=== PATIENT | female | born 1955 | race Caucasian/White ===

== ENCOUNTER 2020-08-08 08:28 | Inpatient (IN) ==
[2020-08-08 08:38] VITALS: BMI 24.1
--- NOTE | 2020-08-08 09:16 | ED.ABDFE ---
HPI - PCP Primary Care Physician: KAYKAY MOHR - Complaint Chief Complaint Doctors Comments: Patient is complaining of swelling of her abdomen and right ankle for the past two weeks getting progressively worst. She denies chest pain, SOB, cold, cough, hematuria or heide but complains of dyspnea when she bends over. She is a patient of Dr. Louis in [place] and is taking Protonix, Baclofen and xanax. She smokes about a pack daily and drinks wine coolers at times. she denies drug usage. She denies any recent trauma. States her usual weight is 124 pounds now she is weighing 132 and has not been eating more than usual. She has not had a colonoscopy or recent paps smear. Chief Complaint:: PT C/O FOR 2 WEEKS HAVING BLOATED AND SWELLING TO HER ABD , ( PT TOOK WATER PILL FROM FAMILY MEMBER ) AND SWELLING TO HER ANKLES PT STATES " I THOUGHT IT WOULD GO AWAY " ,BR - COVID-19 Coronavirus risk:travel/contact w/high risk person: No Has patient experienced Coronavirus symptoms: No - Source History Provided: Patient - Mode of arrival Mode of Arrival: Ambulatory - Timing Onset of Chief Complaint: 07/23/20 Came on: Gradually - Duration Duration: Constant How lon Duration: Weeks - Context History of: None - Modifying Worsening Factors: Position, Movement Improving Factors: Nothing - Associated signs and symptoms Associated Signs and Symptoms: None - Time seen Time Seen by Provider: 08/08/20 09:07 PMH - PMH Past Medical History: Yes Past Medical History: GERD Past Surgical History: Yes Surgical History: Tonsillectomy - Family History History of Family Medical Conditions: Yes Family Medical History: Diabetes Mellitus, Cancer, [place], Coronary Artery Disease - Social History Does patient currently use any type of tobacco product: Yes Have you used tobacco products in the last 12 months: Yes Type of Tobacco Use: Cigarettes How many years tobacco product used: 30 Does any household member use tobacco: No Alcohol Use: None Do you use any recreational Drugs:: No Lives With: Alone Lives Where: Home - Travel Risk Coronavirus risk:travel/contact w/high risk person: No Has patient experienced Coronavirus symptoms: No - infectious screening In the last 2 months have you had wt loss of >10#?: NO Have you had fever, night sweats or hemotysis?: No Have you traveled outside the country in the last 6 months?: No Isolation: Standard ROS - Review of Systems Constitutional: No Symptoms Reported Eyes: No Symptoms Reported ENTM: No Symptoms Reported Respiratoy: No Symptoms Reported Cardiovascular: No Symptoms Reported. negative: See HPI, Chest Pain, Edema, Palpitations, Syncope, Cyanosis, Skin Mottling, Other Gastrointestinal/Abdominal: No Symptoms Reported. negative: See HPI, Abdominal Pain, Constipation, Diarrhea, Nausea, Vomiting, Food Intolerance, Other Genitourinary: No Symptoms Reported. negative: See HPI, Discharge, Dysuria, Frequency, Hematuria, Pain, Bleeding, Other Neurological: No Symptoms Reported Musculoskeletal: No Symptoms Reported Integumentary: No Symptoms Reported Hematologic/Lymphatic: No Symptoms Reported. negative: See HPI, Anemia, Blood Clots, Easy Bleeding, Easy Bruising, Swollen Glands, Lymphadenopathy, Other Endocrine: No Symptoms Reported Psychiatric: No Symptoms Reported. negative: See HPI, Anxiety, Depression, Hallucinations, Excessive crying, Suicidal, Other PE - General Limitations: No Limitations General Appearance: Alert, In Distress (moderate) - Head Head Exam: Normal Inspection, Atraumatic, Normocephalic - Eyes Eye exam: Normal Appearance, PERRL, EOMI. negative: Scleral Icterus, Conjunctival Injection, Nystagmus, Miosis, Mydrasis, Periorbital Swelling, Periorbital Tenderness, Other - ENT ENT Exam: Normal Exam, Normal Oropharynx, Normal External Ear Exam, Mucous Membranes Moist, TM's Normal Bilaterally - Neck Neck Exam: Normal Inspection, Full ROM, Trachea Midline - Chest Chest Inspection: Normal Inspection, Symmetric Chest Wall Rise. negative: Tenderness, Rash, Abscess, Other - Respiratory Respiratory Exam: Normal Lung Sounds Bilat Respiratory Exam: Bilateral Clear to Auscultation - Cardiovascular Cardiovascular Exam: Regular Rate, Normal Rhythm, Normal Heart Sounds. negative: Bradycardia, Tachycardia, Irregular Rhythm, Systolic Murmur, Diastolic Murmur, Rubs, Gallop, Clicks, JVD, +S1, +S2, +S3, +S4, Other - Abdominal Exam Abdominal Exam: Normal Inspection, Normal Bowel Sounds, Soft, Distention, Tenderness (LUQ and RUQ tenderness), Ascites Abdominal Tenderness: RUQ, LUQ, Mild - Rectal Rectal Exam: Deferred - Back Back Exam: Normal Inspection, Full ROM. negative: Tenderness, (R) CVA Tenderness, (L) CVA Tenderness, Muscle Spasm, Paraspinal Tenderness, Vertebral Tenderness, Rashes, (R) Sciatic Notch Tenderness, (L) Sciatic Notch Tendern, (R) Straight Leg Raise, (L) Straight Leg Raise, Other - Extremeties Extremities Exam: Normal Inspection, Full ROM, Normal Capillary Refill. negative: Tenderness, Edema, Joint Swelling, Calf Tenderness, Other - External Exam: Female: Deferred : Speculum Exam (Female): Deferred : Bimanual Exam (female): Deferred - Neurologic Neurological Exam: Alert, Oriented X3, CN II-XII Intact, Normal Gait, Reflexes Normal - Psychiatric Psychiatric Exam: Normal Affect, Normal Mood. negative: Depressed, Agitated, Anxious, Flat Affect, Manic, Homicidal Ideation, Suicidal Ideation, Other - Skin Skin Exam: Warm, Dry, Intact, Normal Color. negative: Rash, Cyanosis, Diaphoresis, Erythema, Pallor, Mottled, Other - Vital Signs Vitals: Temperature 97.0 F Pulse Rate 90 Respiratory Rate 20 Blood Pressure 143/65 O2 Sat by Pulse Oximetry 100 Course - Consultation Called: 10:37 Call Returned: 10:37 (Dr. Pulido to admit) - Education/Counseling Education/Counseling: Patient, Family Educated On: Treatment, Diagnosis, Prognosis, Needs for Follow Up ROR - Labs Reviewed Result Diagrams: 08/08/20 09:38 08/08/20 09:38 - XRAY XRAY Interpreted by: Radiologist (CT abdomen/pelvis: Large volume ascites. If patient does not have chronic liver disease than malignant ascites cannot be excluded given lobular structure in the right adnexa. Cholelithiasis without cholecystitis.) - EKG Rate: 80 [place]: Normal Rhythm: NSR Block: None Hypertrophy: None ST: Inf, Nonsp - Labs Reviewed Laboratory: WBC 9.3 X10^3/uL (3.6-10.0) 08/08/20 09:38 RBC 4.47 X10^6/uL (3.5-5.4) 08/08/20 09:38 Hgb 13.2 g/dL (12.0-16.0) 08/08/20 09:38 Hct 39.1 % (36.0-47.0) 08/08/20 09:38 MCV 87.5 fL (80.0-100.0) 08/08/20 09:38 MCH 29.6 pg (27.0-34.0) 08/08/20 09:38 MCHC 33.8 g/dL (33.0-35.0) 08/08/20 09:38 RDW 14.3 % (11.6-16.5) 08/08/20 09:38 Plt Count 708 X10^3/uL (150.0-450.0) H 08/08/20 09:38 Plt Count Comment Increased (ADEQUATE) A 08/08/20 09:38 MPV 6.5 fL (7.4-11.0) L 08/08/20 09:38 Neut % (Auto) 74.0 % (42.0-75.0) 08/08/20 09:38 Lymph % (Auto) 16.3 % (21.0-51.0) L 08/08/20 09:38 [place] % (Auto) 7.5 % (0.0-13.0) 08/08/20 09:38 Eos % (Auto) 1.1 % (0.9-2.9) 08/08/20 09:38 Baso % (Auto) 1.1 % (0.2-1.0) H 08/08/20 09:38 Neut # (Auto) 6.9 x10^3/uL (2.2-4.8) H 08/08/20 09:38 Lymph # (Auto) 1.5 X10^3/uL (1.3-2.9) 08/08/20 09:38 [place] # (Auto) 0.7 x10^3/uL (0.3-0.8) 08/08/20 09:38 Eos # (Auto) 0.1 x10^3/uL (0.0-0.2) 08/08/20 09:38 Baso # (Auto) 0.1 X10^3/uL (0.0-0.1) 08/08/20 09:38 Absolute Nucleated RBC 0.0 /100WBC 08/08/20 09:38 Plt Morphology Comment Normal (NORMAL) 08/08/20 09:38 RBC Morphology Normal (NORMAL) 08/08/20 09:38 PT 12.3 SECONDS (11.8-14.3) 08/08/20 09:38 INR Target Range - 08/08/20 09:38 INR 0.94 (0.8-1.3) 08/08/20 09:38 APTT 31.6 SECONDS (22.9-36.5) 08/08/20 09:38 PTT Comment - 08/08/20 09:38 Sodium 140 mmol/L (136-145) 08/08/20 09:38 Corrected Sodium TNP 08/08/20 09:38 Potassium 3.8 mmol/L (3.5-5.1) 08/08/20 09:38 Chloride 101 mmol/L (98-107) 08/08/20 09:38 Carbon Dioxide 32.0 mmol/L (21-32) 08/08/20 09:38 BUN 8 mg/dL (7-18) 08/08/20 09:38 Creatinine 0.81 mg/dL (0.55-1.02) 08/08/20 09:38 Est GFR (MDRD) Af Amer > 60 (>60) 08/08/20 09:38 Est GFR (MDRD) Non-Af > 60 (>60) 08/08/20 09:38 Glucose 105 mg/dL (65-99) H 08/08/20 09:38 Calcium 9.0 mg/dL (8.5-10.1) 08/08/20 09:38 Corrected Calcium 10.1 mg/dL (8.5-10.1) 08/08/20 09:38 Magnesium 1.9 mg/dL (1.7-2.9) 08/08/20 09:38 Total Bilirubin 0.40 mg/dL (0.2-1.0) 08/08/20 09:38 AST 37 Units/L (15-37) 08/08/20 09:38 ALT 22 Units/L (12-78) 08/08/20 09:38 Alkaline Phosphatase 178 Units/L (46-116) H 08/08/20 09:38 Creatine Kinase 57 Units/L (26-192) 08/08/20 09:38 CK-MB (CK-2) < 1.0 ng/mL (0-4.0) 08/08/20 09:38 CK/CKMB % Calc 1.8 % (<4) 08/08/20 09:38 Troponin I < 0.02 ng/mL (0-1.5) 08/08/20 09:38 C-Reactive Protein 55.50 mg/L (0-3.0) H 08/08/20 09:38 Total Protein 7.0 g/dL (6.4-8.2) 08/08/20 09:38 Albumin 2.6 g/dL (3.4-5.0) L 08/08/20 09:38 Globulin 4.4 g/dL (2.5-4.5) 08/08/20 09:38 Albumin/Globulin Ratio 0.6 Ratio (1.1-2.1) L 08/08/20 09:38 Amylase 20 Units/L (25-115) L 08/08/20 09:38 Lipase 80 Units/L (73-393) 08/08/20 09:38 HCG, Qual Negative <10 mIU/mL 08/08/20 09:38 Specimen Type Clean catch urine 08/08/20 09:44 Urine Color Yellow (YELLOW) 08/08/20 09:44 Urine Appearance Clear (CLEAR) 08/08/20 09:44 Urine pH 6.5 (5.0 - 8.0) 08/08/20 09:44 Ur Specific [place] 1.010 (1.000-1.030) 08/08/20 09:44 Urine Protein Negative (NEGATIVE) 08/08/20 09:44 Urine Glucose (UA) Negative (NEGATIVE) 08/08/20 09:44 Urine Ketones 2+ (NEGATIVE) 08/08/20 09:44 Urine Occult Blood Negative (NEGATIVE) 08/08/20 09:44 Urine Nitrite Negative (NEGATIVE) 08/08/20 09:44 Urine Bilirubin Negative (NEGATIVE) 08/08/20 09:44 Urine Urobilinogen Normal (NORMAL) 08/08/20 09:44 Ur Leukocyte Esterase Negative (NEGATIVE) 08/08/20 09:44 - XRAY Xray Findings: CXR: No acute cardiopulmonary changes noted. (REBEKAH BARRIENTOS) Opioid - Opioid Risk Tool Age (Alexander box if 16-45): No History of Preadolescent Sexual Abuse: No Total: 0 Total Score Risk Category: Low Risk - Diagnosis Discharge Problem: Adnexal mass, Hypoalbuminemia Abdominal ascites Qualifiers: Ascites type: other type Qualified Code(s): R18.8 - Other ascites Cholelithiasis Qualifiers: Cholangitis acuity: unspecified acuity Biliary obstruction: without biliary obstruction - Discharge Plan Disposition: ADMITTED INPATIENT Condition: Stable - Follow ups/Referrals Follow ups/Referrals: NFD,None [Primary Care Provider] - 3 days - Instructions
--- NOTE | 2020-08-08 09:44 | RAD ---
HISTORYChest painSTUDYAP chestCOMPARISONNoneFINDINGSNormal heart size. No acute segmental or lobar consolidation or pleural fluid demonstrated. There is slight bilateral interstitial prominence, likely chronic.IMPRESSIONNo acute chest abnormality demonstrated.Electronically signed by: EMILY LATIF (Aug 08, 2020 09:43:16)
[2020-08-08 09:45] LABS: BASOPHILS # (AUTO) 0.1 X10^3/uL (0.0-0.1); BASOPHILS % (AUTO) 1.1 % (0.2-1.0); EOSINOPHILS # (AUTO) 0.1 x10^3/uL (0.0-0.2); EOSINOPHILS % (AUTO) 1.1 % (0.9-2.9); HEMATOCRIT 39.1 % (36.0-47.0); HEMOGLOBIN 13.2 g/dL (12.0-16.0); LYMPHOCYTES # (AUTO) 1.5 X10^3/uL (1.3-2.9); LYMPHOCYTES % (AUTO) 16.3 % (21.0-51.0); MEAN CORPUSCULAR HEMOGLOBIN 29.6 pg (27.0-34.0); MEAN CORPUSCULAR HGB CONC 33.8 g/dL (33.0-35.0); MEAN CORPUSCULAR VOLUME 87.5 fL (80.0-100.0); MEAN PLATELET VOLUME 6.5 fL (7.4-11.0); MONOCYTES # (AUTO) 0.7 x10^3/uL (0.3-0.8); MONOCYTES % (AUTO) 7.5 % (0.0-13.0); NEUTROPHILS # (AUTO) 6.9 x10^3/uL (2.2-4.8); PLATELET COUNT 708 X10^3/uL (150.0-450.0); RED BLOOD COUNT 4.47 X10^6/uL (3.5-5.4); RED CELL DISTRIBUTION WIDTH 14.3 % (11.6-16.5); WHITE BLOOD COUNT 9.3 X10^3/uL (3.6-10.0)
--- NOTE | 2020-08-08 09:51 | CT ---
ABDOMEN/PELVIS W/O CONHISTORY: ABDOMINAL SWELLING X2 WEEKSComparison:NoneTechnique:Multiple non contrast axial images of the abdomen and pelvis were obtained from the lung bases to the pubic symphysis.. Dose reduction techniques including Automated Exposure Control (AEC) and adjustment of mA and kV were utlized.Findings:The sensitivity for focal lesion detection within the solid abdominal viscera is diminished without the use of IV contrast.The heart is normal in size. There is no pericardial effusion. Chronic findings in the lung bases.Liver and spleen are normal in size, contour. No focal lesions. No ductal dilitation. Gallbladder present. Gallstones present. No evidence of gallbladder inflammation. Large volume ascites. The pancreas is unremarkable. Adrenal glands are normal. Kidneys are without hydronephrosis or nephrolithiasis.No bowel obstruction or inflammation. Normal appendix. No abnormal appearing mesenteric or retroperitoneal lymph nodes.The bladder is normal in appearance. Uterus not well seen. There is a lobular structure in the right adnexa measuring 4.7 cm. Free fluid in the pelvis.No aggressive osseous lesions.IMPRESSION:1. Large volume ascites. Given a grossly normal appearing liver, correlate with any known chronic liver disease. If patient does not have chronic liver disease than malignant ascites cannot be excluded particularly given the lobular structure in the right adnexa.2. Cholelithiasis without evidence of cholecystitis.Electronically signed by: ABY CRUZ (Aug 08, 2020 09:49:21)
[2020-08-08 09:53] LABS: BILIRUBIN,URINE NEGATIVE (NEGATIVE); BLOOD/HEMOGLOBIN,URINE NEGATIVE (NEGATIVE); GLUCOSE, URINE NEGATIVE (NEGATIVE); KETONES,URINE 2+ (NEGATIVE); LEUKOCYTE ESTERASE ,URINE NEGATIVE (NEGATIVE); NITRITES,URINE NEGATIVE (NEGATIVE); PH,URINE 6.5 (5.0 - 8.0); PROTEIN,URINE NEGATIVE (NEGATIVE); UROBILINOGEN,URINE NORMAL (NORMAL)
[2020-08-08 09:57] LABS: APPEARANCE,URINE CLEAR (CLEAR); COLOR,URINE YELLOW (YELLOW)
[2020-08-08 10:00] LABS: PLATELET MORPHOLOGY COMMENT NORMAL (NORMAL)
[2020-08-08 10:01] LABS: SERUM PREGNANCY TEST, QUAL NEGATIVE <10 mIU/mL
[2020-08-08 10:06] LABS: BLOOD UREA NITROGEN 8 mg/dL (7-18); CHLORIDE 101 mmol/L (98-107); CREATININE 0.81 mg/dL (0.55-1.02); SODIUM 140 mmol/L (136-145); TROPONIN I < 0.02 ng/mL (0-1.5); eGFR NON BLACK RACES > 60 (>60)
[2020-08-08 10:10] LABS: ALANINE AMINOTRANSFERASE 22 Units/L (12-78); ALBUMIN 2.6 g/dL (3.4-5.0); ALKALINE PHOSPHATASE 178 Units/L (46-116); AMYLASE 20 Units/L (25-115); ASPARTATE AMINO TRANSFERASE 37 Units/L (15-37); CKMB % 1.8 % (<4); COR CA(FOR HYPOALB) 10.1 mg/dL (8.5-10.1); CREATINE KINASE 57 Units/L (26-192); CREATINE KINASE MB < 1.0 ng/mL (0-4.0); LIPASE 80 Units/L (73-393); MAGNESIUM 1.9 mg/dL (1.7-2.9)
[2020-08-08] MEDS ORDERED: TYLENOL 325 MG TAB PO PRN (10:42)
[2020-08-08] MEDS ORDERED: PEPCID TAB 20 MG PO PRN (10:42)
[2020-08-08] MEDS ORDERED: ZOFRAN INJ 4 MG VIAL IVP PRN (10:42)
[2020-08-08] MEDS ORDERED: PERCOCET TAB 5/325 MG PO PRN (10:42)
[2020-08-08] MEDS: NICOTINE PATCH TD SCH (13:56)
[2020-08-08] MEDS ORDERED: LIORESAL ONE (20:09)
[2020-08-08] MEDS: XANAX PO SCH (20:17)
[2020-08-08] MEDS: LIORESAL PO SCH (22:00)
[2020-08-09 05:26] LABS: BASOPHILS # (AUTO) 0.1 X10^3/uL (0.0-0.1); BASOPHILS % (AUTO) 0.8 % (0.2-1.0); EOSINOPHILS # (AUTO) 0.2 x10^3/uL (0.0-0.2); EOSINOPHILS % (AUTO) 2.3 % (0.9-2.9); HEMATOCRIT 36.8 % (36.0-47.0); HEMOGLOBIN 12.2 g/dL (12.0-16.0); LYMPHOCYTES # (AUTO) 1.7 X10^3/uL (1.3-2.9); LYMPHOCYTES % (AUTO) 22.6 % (21.0-51.0); MEAN CORPUSCULAR HEMOGLOBIN 29.5 pg (27.0-34.0); MEAN CORPUSCULAR HGB CONC 33.2 g/dL (33.0-35.0); MEAN CORPUSCULAR VOLUME 88.9 fL (80.0-100.0); MEAN PLATELET VOLUME 7.9 fL (7.4-11.0); MONOCYTES # (AUTO) 0.7 x10^3/uL (0.3-0.8); MONOCYTES % (AUTO) 9.6 % (0.0-13.0); NEUTROPHILS # (AUTO) 4.9 x10^3/uL (2.2-4.8); NEUTROPHILS % (AUTO) 64.7 % (42.0-75.0); PLATELET COUNT 667 X10^3/uL (150.0-450.0); RED BLOOD COUNT 4.14 X10^6/uL (3.5-5.4); RED CELL DISTRIBUTION WIDTH 14.2 % (11.6-16.5); WHITE BLOOD COUNT 7.6 X10^3/uL (3.6-10.0)
[2020-08-09 05:34] LABS: ALANINE AMINOTRANSFERASE 16 Units/L (12-78); ALBUMIN 2.2 g/dL (3.4-5.0); ALKALINE PHOSPHATASE 146 Units/L (46-116); ASPARTATE AMINO TRANSFERASE 28 Units/L (15-37); BLOOD UREA NITROGEN 6 mg/dL (7-18); CARBON DIOXIDE 31.5 mmol/L (21-32); CHLORIDE 104 mmol/L (98-107); COR CA(FOR HYPOALB) 10.4 mg/dL (8.5-10.1); CREATININE 0.74 mg/dL (0.55-1.02); SODIUM 142 mmol/L (136-145); TOTAL PROTEIN 6.2 g/dL (6.4-8.2); eGFR NON BLACK RACES > 60 (>60)
[2020-08-09 05:52] LABS: PLATELET MORPHOLOGY COMMENT NORMAL (NORMAL)
[2020-08-09] MEDS: LIORESAL PO SCH ×3 (06:01→22:00)
[2020-08-09] MEDS: NICOTINE PATCH TD SCH (08:40)
[2020-08-09] MEDS: PROTONIX TAB 40 MG PO SCH (08:40)
[2020-08-09] MEDS ORDERED: TYLENOL 325 MG TAB PO PRN (09:38)
--- NOTE | 2020-08-09 10:49 | DR.H&P ---
H&P History & Physical for Day of: H&P Date: 08/09/20 Chief Complaint Chief Complaint: abdominal swelling Allergies Allergies Allergy/AdvReac Type Severity Reaction Status Date / Time moxifloxacin [From Avelox] Allergy Verified 08/08/20 08:38 penicillin G Allergy Verified 08/08/20 08:38 History of Present Illness History of Present Illness: Ms. Bradley is a 65y/o female with no significant past medical hx presented with 2 weeks og worsening abdominal distension. Patient initially thought it was constipation so took some laxatives. She also took another family member's "water pills" but the swelling did not improve. She gained almost 10 lbs. She denies N/V/D or abdominal pain. She just feels discomfort in her abdomen. No hx of liver disease. Denies hx of hepatitis. Denies chronic alcohol abuse. Denies prev abdominal surgeries. ER work-up - CTAP: gallstones, large volume ascites. lobular structure in the right adnexa Labs: Hgb 12.2 Plt: 667 Na: 142 K: 3.6 normal LFTs CRP 55 Plan: consult Dr. Sanchez for paracentesis, will be done tomorrow. NPO after midnight. Monitor AM labs. Patient does not seem to be in any distress. Will need to send out ascetic fluid studies including cytology due to concern for malignancy. Past Medical History Past Medical History: GERD Past Surgical History Surgical History: Tonsillectomy Family History Family Medical History: Diabetes Mellitus, Cancer, [place] and Coronary Artery Disease Social History Does patient currently use any type of tobacco product: Yes Have you used tobacco products in the last 12 months: Yes Type of Tobacco Use: Cigarettes How many years tobacco product used: 30 Does any household member use tobacco: No Alcohol Use: Occasionally Drug Use: Prescription Drugs Prescription drug monitoring program results: PDMP reviewed and no concerns identified Medications Home Medications: moxifloxacin [From Avelox] Allergy (Verified 08/08/20 08:38) penicillin G Allergy (Verified 08/08/20 08:38) CONTINUE taking the following medications alprazolam [Xanax] 1 mg PO HS 08/08/20 [History] baclofen 10 mg PO TID 08/08/20 [History] pantoprazole [Protonix] 40 mg PO QAM 08/08/20 [History] Labs Result Diagrams: 08/09/20 04:10 08/09/20 04:10 Labs: Laboratory WBC 7.6 X10^3/uL (3.6-10.0) 08/09/20 04:10 RBC 4.14 X10^6/uL (3.5-5.4) 08/09/20 04:10 Hgb 12.2 g/dL (12.0-16.0) 08/09/20 04:10 Hct 36.8 % (36.0-47.0) 08/09/20 04:10 MCV 88.9 fL (80.0-100.0) 08/09/20 04:10 MCH 29.5 pg (27.0-34.0) 08/09/20 04:10 MCHC 33.2 g/dL (33.0-35.0) 08/09/20 04:10 RDW 14.2 % (11.6-16.5) 08/09/20 04:10 Plt Count 667 X10^3/uL (150.0-450.0) H 08/09/20 04:10 Plt Count Comment Increased (ADEQUATE) A 08/09/20 04:10 MPV 7.9 fL (7.4-11.0) 08/09/20 04:10 Neut % (Auto) 64.7 % (42.0-75.0) 08/09/20 04:10 Lymph % (Auto) 22.6 % (21.0-51.0) 08/09/20 04:10 [place] % (Auto) 9.6 % (0.0-13.0) 08/09/20 04:10 Eos % (Auto) 2.3 % (0.9-2.9) 08/09/20 04:10 Baso % (Auto) 0.8 % (0.2-1.0) 08/09/20 04:10 Neut # (Auto) 4.9 x10^3/uL (2.2-4.8) H 08/09/20 04:10 Lymph # (Auto) 1.7 X10^3/uL (1.3-2.9) 08/09/20 04:10 [place] # (Auto) 0.7 x10^3/uL (0.3-0.8) 08/09/20 04:10 Eos # (Auto) 0.2 x10^3/uL (0.0-0.2) 08/09/20 04:10 Baso # (Auto) 0.1 X10^3/uL (0.0-0.1) 08/09/20 04:10 Absolute Nucleated RBC 0.0 /100WBC 08/09/20 04:10 Plt Morphology Comment Normal (NORMAL) 08/09/20 04:10 RBC Morphology Normal (NORMAL) 08/09/20 04:10 PT 12.3 SECONDS (11.8-14.3) 08/08/20 09:38 INR Target Range - 08/08/20 09:38 INR 0.94 (0.8-1.3) 08/08/20 09:38 APTT 31.6 SECONDS (22.9-36.5) 08/08/20 09:38 PTT Comment - 08/08/20 09:38 Sodium 142 mmol/L (136-145) 08/09/20 04:10 Corrected Sodium TNP 08/09/20 04:10 Potassium 3.6 mmol/L (3.5-5.1) 08/09/20 04:10 Chloride 104 mmol/L (98-107) 08/09/20 04:10 Carbon Dioxide 31.5 mmol/L (21-32) 08/09/20 04:10 BUN 6 mg/dL (7-18) L 08/09/20 04:10 Creatinine 0.74 mg/dL (0.55-1.02) 08/09/20 04:10 Est GFR (MDRD) Af Amer > 60 (>60) 08/09/20 04:10 Est GFR (MDRD) Non-Af > 60 (>60) 08/09/20 04:10 Glucose 89 mg/dL (65-99) 08/09/20 04:10 Calcium 9.0 mg/dL (8.5-10.1) 08/09/20 04:10 Corrected Calcium 10.4 mg/dL (8.5-10.1) H 08/09/20 04:10 Magnesium 1.9 mg/dL (1.7-2.9) 08/08/20 09:38 Total Bilirubin 0.30 mg/dL (0.2-1.0) 08/09/20 04:10 AST 28 Units/L (15-37) 08/09/20 04:10 ALT 16 Units/L (12-78) 08/09/20 04:10 Alkaline Phosphatase 146 Units/L (46-116) H 08/09/20 04:10 Creatine Kinase 57 Units/L (26-192) 08/08/20 09:38 CK-MB (CK-2) < 1.0 ng/mL (0-4.0) 08/08/20 09:38 CK/CKMB % Calc 1.8 % (<4) 08/08/20 09:38 Troponin I < 0.02 ng/mL (0-1.5) 08/08/20 09:38 C-Reactive Protein 50.70 mg/L (0-3.0) H 08/09/20 04:10 Total Protein 6.2 g/dL (6.4-8.2) L 08/09/20 04:10 Albumin 2.2 g/dL (3.4-5.0) L 08/09/20 04:10 Globulin 4.0 g/dL (2.5-4.5) 08/09/20 04:10 Albumin/Globulin Ratio 0.6 Ratio (1.1-2.1) L 08/09/20 04:10 Amylase 20 Units/L (25-115) L 08/08/20 09:38 Lipase 80 Units/L (73-393) 08/08/20 09:38 HCG, Qual Negative <10 mIU/mL 08/08/20 09:38 Specimen Type Clean catch urine 08/08/20 09:44 Urine Color Yellow (YELLOW) 08/08/20 09:44 Urine Appearance Clear (CLEAR) 08/08/20 09:44 Urine pH 6.5 (5.0 - 8.0) 08/08/20 09:44 Ur Specific [place] 1.010 (1.000-1.030) 08/08/20 09:44 Urine Protein Negative (NEGATIVE) 08/08/20 09:44 Urine Glucose (UA) Negative (NEGATIVE) 08/08/20 09:44 Urine Ketones 2+ (NEGATIVE) 08/08/20 09:44 Urine Occult Blood Negative (NEGATIVE) 08/08/20 09:44 Urine Nitrite Negative (NEGATIVE) 08/08/20 09:44 Urine Bilirubin Negative (NEGATIVE) 08/08/20 09:44 Urine Urobilinogen Normal (NORMAL) 08/08/20 09:44 Ur Leukocyte Esterase Negative (NEGATIVE) 08/08/20 09:44 SARS-CoV-2 (PCR) Negative (NEGATIVE) 08/08/20 10:52 Review of Systems Constitutional: No Symptoms Reported Eyes: No Symptoms Reported ENT: No Symptoms Reported Respiratory: Shortness of Breath Cardiovascular: No Symptoms Reported Gastrointestinal: Abdominal Pain Genitourinary: No Symptoms Reported Musculoskeletal: No Symptoms Reported Skin: No Symptoms Reported Neurological: No Symptoms Reported Physical Exam Vital Signs: Temperature 98.2 F Pulse Rate [Right Brachial] 74 Pulse Rate 90 Respiratory Rate 18 Blood Pressure [Right Arm] 120/62 Blood Pressure 143/65 O2 Sat by Pulse Oximetry 93 Oriented: Normal Eyes: Normal Ear: Normal Throat: Normal Respiratory: Clear Throughout Cardiovascular: Normal Auscultation: Bowel Sounds: Normal Palpation: Other (distended ) Tenderness: Diffuse Skin: Normal Musculoskeletal: Normal Psychiatric: Normal Mood Description: Calm Affect: Normal Speech Pattern: Clear and Appropriate Assessment/Plan (1) Abdominal ascites: Qualifiers: Ascites type: other type Qualified Code(s): R18.8 - Other ascites Status: Acute (2) Adnexal mass: Status: Acute (3) Cholelithiasis: Qualifiers: Biliary obstruction: without biliary obstruction Cholangitis acuity: unspecified acuity Status: Acute (4) Anxiety: Status: Acute (5) GERD (gastroesophageal reflux disease): Status: Acute Review H&P Reviewed: Yes Patient was examined?: Yes
[2020-08-09] MEDS: XANAX PO SCH (20:38)
[2020-08-10 05:42] LABS: BASOPHILS # (AUTO) 0.1 X10^3/uL (0.0-0.1); BASOPHILS % (AUTO) 1.3 % (0.2-1.0); EOSINOPHILS # (AUTO) 0.2 x10^3/uL (0.0-0.2); EOSINOPHILS % (AUTO) 3.1 % (0.9-2.9); HEMATOCRIT 38.9 % (36.0-47.0); HEMOGLOBIN 13.1 g/dL (12.0-16.0); LYMPHOCYTES # (AUTO) 1.9 X10^3/uL (1.3-2.9); LYMPHOCYTES % (AUTO) 28.9 % (21.0-51.0); MEAN CORPUSCULAR HEMOGLOBIN 30.1 pg (27.0-34.0); MEAN CORPUSCULAR HGB CONC 33.7 g/dL (33.0-35.0); MEAN CORPUSCULAR VOLUME 89.4 fL (80.0-100.0); MEAN PLATELET VOLUME 7.7 fL (7.4-11.0); MONOCYTES # (AUTO) 0.5 x10^3/uL (0.3-0.8); MONOCYTES % (AUTO) 8.2 % (0.0-13.0); NEUTROPHILS # (AUTO) 3.8 x10^3/uL (2.2-4.8); NEUTROPHILS % (AUTO) 58.5 % (42.0-75.0); PLATELET COUNT 797 X10^3/uL (150.0-450.0); RED BLOOD COUNT 4.35 X10^6/uL (3.5-5.4); RED CELL DISTRIBUTION WIDTH 14.2 % (11.6-16.5); WHITE BLOOD COUNT 6.6 X10^3/uL (3.6-10.0)
[2020-08-10 05:50] LABS: ALANINE AMINOTRANSFERASE 20 Units/L (12-78); ALBUMIN 2.6 g/dL (3.4-5.0); ALKALINE PHOSPHATASE 165 Units/L (46-116); ASPARTATE AMINO TRANSFERASE 32 Units/L (15-37); BLOOD UREA NITROGEN 6 mg/dL (7-18); CALCIUM 9.3 mg/dL (8.5-10.1); CARBON DIOXIDE 33.6 mmol/L (21-32); CHLORIDE 103 mmol/L (98-107); COR CA(FOR HYPOALB) 10.4 mg/dL (8.5-10.1); CREATININE 0.79 mg/dL (0.55-1.02); SODIUM 143 mmol/L (136-145); TOTAL PROTEIN 7.3 g/dL (6.4-8.2); eGFR NON BLACK RACES > 60 (>60)
[2020-08-10 06:01] LABS: PLATELET MORPHOLOGY COMMENT NORMAL (NORMAL)
[2020-08-10] MEDS: LIORESAL PO SCH ×2 (06:02→13:59)
[2020-08-10] MEDS ORDERED: POTASSIUM CHL 40 MEQ/NS 0.45% 500 ML IV PRN (08:40)
[2020-08-10] MEDS ORDERED: K-DUR TAB 20 MEQ PO PRN (08:40)
[2020-08-10] MEDS ORDERED: POTASSIUM CHL 60 MEQ/NS 0.45% 500 ML IV PRN (08:40)
[2020-08-10] MEDS ORDERED: K-RIDER 10 MEQ/NS 100 ML 10 MEQ/100 ML BAG IV PRN (08:40)
[2020-08-10] MEDS ORDERED: MICRO K EXTEN CAP 10 MEQ PO PRN (08:40)
[2020-08-10] MEDS ORDERED: POTASSIUM CHLORIDE LIQ 20 MEQ UDC PO PRN (08:40)
[2020-08-10] MEDS ORDERED: KLOR-CON PO PRN (08:40)
--- NOTE | 2020-08-10 09:05 | PCM.PROG ---
Progress Note Progress Note for Day of Date of Exam: 08/10/20 Subjective Subjective: Patient seen at bedside, no overnight events. Patient has been NPO for paracentesis today. Dr. Sanchez saw the patient yesterday and ordered tumor markers. Patient denies N/V/D. She continues to have abdominal discomfort. Labs: Hgb 13.1 Plt: 797 K: 3.4 CO2: 33.6 Plan: paracentesis as per Dr. Sanchez, send fluid studies including cytology. Follow tumor markers. Replace K. Continue NPO. Past Medical Family Social History Past Med/Fam/Surg Hx: No changes since H&P Allergies: Allergies moxifloxacin [From Avelox] Allergy (Verified 08/08/20 08:38) penicillin G Allergy (Verified 08/08/20 08:38) Review of Systems ROS: No change since H&P Vital Signs and I&O's Vital Signs: Temperature 98.3 F Pulse Rate [Right Brachial] 87 Pulse Rate 90 Respiratory Rate 18 Blood Pressure [Right Arm] 120/69 Blood Pressure 143/65 O2 Sat by Pulse Oximetry 96 Intake and Output: Intake & Output 08/07/20 08/08/20 08/09/20 08/10/20 23:59 23:59 23:59 23:59 Intake Total 830 / 830 130 / 130 1810 / 1810 Balance 830 / 830 130 / 130 1810 / 1810 Physical Exam Oriented: Normal Eyes: Normal Ear: Normal Throat: Normal Cardiovascular: Normal Auscultation: Bowel Sounds: Normal Palpation: Other (abdomen diffusely distended ) Tenderness: Diffuse Skin: Normal Musculoskeletal: Normal Psychiatric: Normal Mood Description: Calm Affect: Normal Speech Pattern: Clear and Appropriate Laboratory and Diagnostics Result Diagrams: 08/10/20 04:05 08/10/20 04:05 Labs: Laboratory WBC 6.6 X10^3/uL (3.6-10.0) 08/10/20 04:05 RBC 4.35 X10^6/uL (3.5-5.4) 08/10/20 04:05 Hgb 13.1 g/dL (12.0-16.0) 08/10/20 04:05 Hct 38.9 % (36.0-47.0) 08/10/20 04:05 MCV 89.4 fL (80.0-100.0) 08/10/20 04:05 MCH 30.1 pg (27.0-34.0) 08/10/20 04:05 MCHC 33.7 g/dL (33.0-35.0) 08/10/20 04:05 RDW 14.2 % (11.6-16.5) 08/10/20 04:05 Plt Count 797 X10^3/uL (150.0-450.0) H 08/10/20 04:05 Plt Count Comment Increased (ADEQUATE) A 08/10/20 04:05 MPV 7.7 fL (7.4-11.0) 08/10/20 04:05 Neut % (Auto) 58.5 % (42.0-75.0) 08/10/20 04:05 Lymph % (Auto) 28.9 % (21.0-51.0) 08/10/20 04:05 [place] % (Auto) 8.2 % (0.0-13.0) 08/10/20 04:05 Eos % (Auto) 3.1 % (0.9-2.9) H 08/10/20 04:05 Baso % (Auto) 1.3 % (0.2-1.0) H 08/10/20 04:05 Neut # (Auto) 3.8 x10^3/uL (2.2-4.8) 08/10/20 04:05 Lymph # (Auto) 1.9 X10^3/uL (1.3-2.9) 08/10/20 04:05 [place] # (Auto) 0.5 x10^3/uL (0.3-0.8) 08/10/20 04:05 Eos # (Auto) 0.2 x10^3/uL (0.0-0.2) 08/10/20 04:05 Baso # (Auto) 0.1 X10^3/uL (0.0-0.1) 08/10/20 04:05 Absolute Nucleated RBC 0.1 /100WBC 08/10/20 04:05 Plt Morphology Comment Normal (NORMAL) 08/10/20 04:05 RBC Morphology Normal (NORMAL) 08/10/20 04:05 PT 12.3 SECONDS (11.8-14.3) 08/08/20 09:38 INR Target Range - 08/08/20 09:38 INR 0.94 (0.8-1.3) 08/08/20 09:38 APTT 31.6 SECONDS (22.9-36.5) 08/08/20 09:38 PTT Comment - 08/08/20 09:38 Sodium 143 mmol/L (136-145) 08/10/20 04:05 Corrected Sodium TNP 08/10/20 04:05 Potassium 3.4 mmol/L (3.5-5.1) L 08/10/20 04:05 Chloride 103 mmol/L (98-107) 08/10/20 04:05 Carbon Dioxide 33.6 mmol/L (21-32) H 08/10/20 04:05 BUN 6 mg/dL (7-18) L 08/10/20 04:05 Creatinine 0.79 mg/dL (0.55-1.02) 08/10/20 04:05 Est GFR (MDRD) Af Amer > 60 (>60) 08/10/20 04:05 Est GFR (MDRD) Non-Af > 60 (>60) 08/10/20 04:05 Glucose 91 mg/dL (65-99) 08/10/20 04:05 Calcium 9.3 mg/dL (8.5-10.1) 08/10/20 04:05 Corrected Calcium 10.4 mg/dL (8.5-10.1) H 08/10/20 04:05 Magnesium 2.1 mg/dL (1.7-2.9) 08/10/20 04:05 Total Bilirubin 0.30 mg/dL (0.2-1.0) 08/10/20 04:05 AST 32 Units/L (15-37) 08/10/20 04:05 ALT 20 Units/L (12-78) 08/10/20 04:05 Alkaline Phosphatase 165 Units/L (46-116) H 08/10/20 04:05 Creatine Kinase 57 Units/L (26-192) 08/08/20 09:38 CK-MB (CK-2) < 1.0 ng/mL (0-4.0) 08/08/20 09:38 CK/CKMB % Calc 1.8 % (<4) 08/08/20 09:38 Troponin I < 0.02 ng/mL (0-1.5) 08/08/20 09:38 C-Reactive Protein 50.70 mg/L (0-3.0) H 08/09/20 04:10 Total Protein 7.3 g/dL (6.4-8.2) 08/10/20 04:05 Albumin 2.6 g/dL (3.4-5.0) L 08/10/20 04:05 Globulin 4.7 g/dL (2.5-4.5) H 08/10/20 04:05 Albumin/Globulin Ratio 0.6 Ratio (1.1-2.1) L 08/10/20 04:05 Amylase 20 Units/L (25-115) L 08/08/20 09:38 Lipase 80 Units/L (73-393) 08/08/20 09:38 HCG, Qual Negative <10 mIU/mL 08/08/20 09:38 Specimen Type Clean catch urine 08/08/20 09:44 Urine Color Yellow (YELLOW) 08/08/20 09:44 Urine Appearance Clear (CLEAR) 08/08/20 09:44 Urine pH 6.5 (5.0 - 8.0) 08/08/20 09:44 Ur Specific [place] 1.010 (1.000-1.030) 08/08/20 09:44 Urine Protein Negative (NEGATIVE) 08/08/20 09:44 Urine Glucose (UA) Negative (NEGATIVE) 08/08/20 09:44 Urine Ketones 2+ (NEGATIVE) 08/08/20 09:44 Urine Occult Blood Negative (NEGATIVE) 08/08/20 09:44 Urine Nitrite Negative (NEGATIVE) 08/08/20 09:44 Urine Bilirubin Negative (NEGATIVE) 08/08/20 09:44 Urine Urobilinogen Normal (NORMAL) 08/08/20 09:44 Ur Leukocyte Esterase Negative (NEGATIVE) 08/08/20 09:44 SARS-CoV-2 (PCR) Negative (NEGATIVE) 08/08/20 10:52 Plan (1) Abdominal ascites: Status: Acute Qualifiers: Ascites type: other type Qualified Code(s): R18.8 - Other ascites (2) Adnexal mass: Status: Acute (3) Cholelithiasis: Status: Acute Qualifiers: Biliary obstruction: without biliary obstruction Cholangitis acuity: unspecified acuity (4) Anxiety: Status: Acute (5) GERD (gastroesophageal reflux disease): Status: Acute
[2020-08-10] MEDS: PROTONIX TAB 40 MG PO SCH (09:26)
[2020-08-10] MEDS: NICOTINE PATCH TD SCH (09:27)
[2020-08-10 16:20] VITALS: BP 110/71
--- NOTE | 2020-08-10 17:01 | W.DIS.FURT ---
Summary of Discharge Discharge Summary of Date Date of Exam: 08/10/20 Admission Date Date of Admission: 08/08/20 Admission Diagnosis Patient Problems (Updated 08/09/20 @ 10:48 by Cassy Pulido) Abdominal ascites (Acute) R18.8 Adnexal mass (Acute) N94.89 Cholelithiasis (Acute) K80.20 Hypoalbuminemia (Acute) E88.09 Hospital Course: Ms. Bradley is a 65y/o female with no significant past medical hx presented with 2 weeks og worsening abdominal distension. Patient initially thought it was constipation so took some laxatives. She also took another family member's "water pills" but the swelling did not improve. She gained almost 10 lbs. She denies N/V/D or abdominal pain. She just feels discomfort in her abdomen. No hx of liver disease. Denies hx of hepatitis. Denies chronic alcohol abuse. Denies prev abdominal surgeries. ER work-up showed CTAP: gallstones, large volume ascites. lobular structure in the right adnexa. Labs showed elevated platelet count along with elevated CRP. Patient also had low potassium. She was admitted for paracentesis. Dr. Sanchez was consulted and peritoneal fluid was removed, almost 4L. Patient remained stable. Ascitic fluid studies were sent including cytology. Tumour markers were also sent out. Patient will follow up with PCP in [address] Sanchez in 7-10 days to discuss results. Patient was stable for discharge. Vital Signs: Vital Signs (72 hours) 08/08/20 08:34 08/08/20 12:45 08/08/20 16:00 Temperature 97.0 F L 97.9 F 97.3 F L Pulse Rate 90 Pulse Rate [Right Brachial] 94 H 75 Respiratory Rate 20 20 20 Blood Pressure 143/65 Blood Pressure [Right Arm] 179/82 138/80 O2 Sat by Pulse Oximetry 100 96 96 08/08/20 20:00 08/09/20 00:00 08/09/20 04:00 Temperature 98.2 F 98.2 F 98.6 F Pulse Rate Pulse Rate [Right Brachial] 80 70 82 Respiratory Rate 20 16 20 Blood Pressure Blood Pressure [Right Arm] 144/86 124/78 138/71 O2 Sat by Pulse Oximetry 99 95 97 08/09/20 07:32 08/09/20 12:00 08/09/20 16:00 Temperature 98.2 F 98.5 F 98.4 F Pulse Rate Pulse Rate [Right Brachial] 74 65 76 Respiratory Rate 18 18 18 Blood Pressure Blood Pressure [Right Arm] 120/62 115/55 114/63 O2 Sat by Pulse Oximetry 93 L 93 L 96 08/09/20 20:00 08/10/20 00:00 08/10/20 04:00 Temperature 99.0 F 98.4 F 97.9 F Pulse Rate Pulse Rate [Right Brachial] 82 74 71 Respiratory Rate 19 18 20 Blood Pressure Blood Pressure [Right Arm] 136/79 118/63 124/65 O2 Sat by Pulse Oximetry 96 92 L 95 08/10/20 08:00 08/10/20 12:00 08/10/20 16:00 Temperature 98.3 F 98.0 F 98.9 F Pulse Rate Pulse Rate [Right Brachial] 87 90 76 Respiratory Rate 18 20 20 Blood Pressure Blood Pressure [Right Arm] 120/69 130/63 110/71 O2 Sat by Pulse Oximetry 96 100 93 L Labs: Laboratory Last Values WBC 6.6 X10^3/uL (3.6-10.0) 08/10/20 04:05 RBC 4.35 X10^6/uL (3.5-5.4) 08/10/20 04:05 Hgb 13.1 g/dL (12.0-16.0) 08/10/20 04:05 Hct 38.9 % (36.0-47.0) 08/10/20 04:05 MCV 89.4 fL (80.0-100.0) 08/10/20 04:05 MCH 30.1 pg (27.0-34.0) 08/10/20 04:05 MCHC 33.7 g/dL (33.0-35.0) 08/10/20 04:05 RDW 14.2 % (11.6-16.5) 08/10/20 04:05 Plt Count 797 X10^3/uL (150.0-450.0) H 08/10/20 04:05 Plt Count Comment Increased (ADEQUATE) A 08/10/20 04:05 MPV 7.7 fL (7.4-11.0) 08/10/20 04:05 Neut % (Auto) 58.5 % (42.0-75.0) 08/10/20 04:05 Lymph % (Auto) 28.9 % (21.0-51.0) 08/10/20 04:05 [place] % (Auto) 8.2 % (0.0-13.0) 08/10/20 04:05 Eos % (Auto) 3.1 % (0.9-2.9) H 08/10/20 04:05 Baso % (Auto) 1.3 % (0.2-1.0) H 08/10/20 04:05 Neut # (Auto) 3.8 x10^3/uL (2.2-4.8) 08/10/20 04:05 Lymph # (Auto) 1.9 X10^3/uL (1.3-2.9) 08/10/20 04:05 [place] # (Auto) 0.5 x10^3/uL (0.3-0.8) 08/10/20 04:05 Eos # (Auto) 0.2 x10^3/uL (0.0-0.2) 08/10/20 04:05 Baso # (Auto) 0.1 X10^3/uL (0.0-0.1) 08/10/20 04:05 Absolute Nucleated RBC 0.1 /100WBC 08/10/20 04:05 Plt Morphology Comment Normal (NORMAL) 08/10/20 04:05 RBC Morphology Normal (NORMAL) 08/10/20 04:05 PT 12.3 SECONDS (11.8-14.3) 08/08/20 09:38 INR Target Range - 08/08/20 09:38 INR 0.94 (0.8-1.3) 08/08/20 09:38 APTT 31.6 SECONDS (22.9-36.5) 08/08/20 09:38 PTT Comment - 08/08/20 09:38 Sodium 143 mmol/L (136-145) 08/10/20 04:05 Corrected Sodium TNP 08/10/20 04:05 Potassium 3.4 mmol/L (3.5-5.1) L 08/10/20 04:05 Chloride 103 mmol/L (98-107) 08/10/20 04:05 Carbon Dioxide 33.6 mmol/L (21-32) H 08/10/20 04:05 BUN 6 mg/dL (7-18) L 08/10/20 04:05 Creatinine 0.79 mg/dL (0.55-1.02) 08/10/20 04:05 Est GFR (MDRD) Af Amer > 60 (>60) 08/10/20 04:05 Est GFR (MDRD) Non-Af > 60 (>60) 08/10/20 04:05 Glucose 91 mg/dL (65-99) 08/10/20 04:05 Calcium 9.3 mg/dL (8.5-10.1) 08/10/20 04:05 Corrected Calcium 10.4 mg/dL (8.5-10.1) H 08/10/20 04:05 Magnesium 2.1 mg/dL (1.7-2.9) 08/10/20 04:05 Total Bilirubin 0.30 mg/dL (0.2-1.0) 08/10/20 04:05 AST 32 Units/L (15-37) 08/10/20 04:05 ALT 20 Units/L (12-78) 08/10/20 04:05 Alkaline Phosphatase 165 Units/L (46-116) H 08/10/20 04:05 Creatine Kinase 57 Units/L (26-192) 08/08/20 09:38 CK-MB (CK-2) < 1.0 ng/mL (0-4.0) 08/08/20 09:38 CK/CKMB % Calc 1.8 % (<4) 08/08/20 09:38 Troponin I < 0.02 ng/mL (0-1.5) 08/08/20 09:38 C-Reactive Protein 50.70 mg/L (0-3.0) H 08/09/20 04:10 Total Protein 7.3 g/dL (6.4-8.2) 08/10/20 04:05 Albumin 2.6 g/dL (3.4-5.0) L 08/10/20 04:05 Globulin 4.7 g/dL (2.5-4.5) H 08/10/20 04:05 Albumin/Globulin Ratio 0.6 Ratio (1.1-2.1) L 08/10/20 04:05 Amylase 20 Units/L (25-115) L 08/08/20 09:38 Lipase 80 Units/L (73-393) 08/08/20 09:38 HCG, Qual Negative <10 mIU/mL 08/08/20 09:38 Specimen Type Clean catch urine 08/08/20 09:44 Urine Color Yellow (YELLOW) 08/08/20 09:44 Urine Appearance Clear (CLEAR) 08/08/20 09:44 Urine pH 6.5 (5.0 - 8.0) 08/08/20 09:44 Ur Specific [place] 1.010 (1.000-1.030) 08/08/20 09:44 Urine Protein Negative (NEGATIVE) 08/08/20 09:44 Urine Glucose (UA) Negative (NEGATIVE) 08/08/20 09:44 Urine Ketones 2+ (NEGATIVE) 08/08/20 09:44 Urine Occult Blood Negative (NEGATIVE) 08/08/20 09:44 Urine Nitrite Negative (NEGATIVE) 08/08/20 09:44 Urine Bilirubin Negative (NEGATIVE) 08/08/20 09:44 Urine Urobilinogen Normal (NORMAL) 08/08/20 09:44 Ur Leukocyte Esterase Negative (NEGATIVE) 08/08/20 09:44 Peritoneal Tot Protein 4.2 08/10/20 12:20 Peritoneal Glucose 81 08/10/20 12:20 SARS-CoV-2 (PCR) Negative (NEGATIVE) 08/08/20 10:52 Cytology Specimen To follow 08/10/20 12:20 Reason For Visit: ASCITES, R ADNEXAL LESION, CHOLILITHIASIS Discharge Date Discharge Date: 08/10/20 Discharge Diagnosis All Active Problems (Updated 08/09/20 @ 10:48 by Cassy Pulido) GERD (gastroesophageal reflux disease) (Acute) Anxiety (Acute) Abdominal ascites (Acute) Adnexal mass (Acute) Cholelithiasis (Acute) Hypoalbuminemia (Acute) Plan of Treatment: Continue with present treatment and follow up plan. Pt is to keep follow up appointment as instructed and take medications as ordered. Discharge Medications Discharge Medications: moxifloxacin [From Avelox] Allergy (Verified 08/08/20 08:38) penicillin G Allergy (Verified 08/08/20 08:38) CONTINUE taking the following medications alprazolam [Xanax] 1 mg PO HS 08/08/20 [History] baclofen 10 mg PO TID 08/08/20 [History] pantoprazole [Protonix] 40 mg PO QAM 08/08/20 [History] Follow up and Referral Follow Up: 1 Week (PCP) 10 Days (Dr. Sanchez ) Discharge Disposition Discharge Disposition: Home S Discharge Condition: Stable Discharge Plan Discharge Plan Hospital Course: Ms. Bradley is a 65y/o female with no significant past medical hx presented with 2 weeks og worsening abdominal distension. Patient initially thought it was constipation so took some laxatives. She also took another family member's "water pills" but the swelling did not improve. She gained almost 10 lbs. She denies N/V/D or abdominal pain. She just feels discomfort in her abdomen. No hx of liver disease. Denies hx of hepatitis. Denies chronic alcohol abuse. Denies prev abdominal surgeries. ER work-up showed CTAP: gallstones, large volume ascites. lobular structure in the right adnexa. Labs showed elevated platelet count along with elevated CRP. Patient also had low potassium. She was admitted for paracentesis. Dr. Sanchez was consulted and peritoneal fluid was removed, almost 4L. Patient remained stable. Ascitic fluid studies were sent including cytology. Tumour markers were also sent out. Patient will follow up with PCP in [address] Sanchez in 7-10 days to discuss results. Patient was stable for discharge. Patient Disposition: 01 HOME, SELF-CARE Condition: Stable Health Concerns: Post Hospitalization: new medications and changes needed to prevent readmission or further decline. Pt educated and given instructions on all concerns. Plan of Treatment: Continue with present treatment and follow up plan. Pt is to keep follow up appointment as instructed and take medications as ordered. Prescription drug monitoring program results: PDMP reviewed and no concerns identified Prescriptions: Continued alprazolam [Xanax] 0.5 mg Tablet 1 mg PO HS RF: 0 pantoprazole [Protonix] 40 mg Tablet,Delayed Release (Dr/Ec) 40 mg PO QAM RF: 0 baclofen 5 mg Tablet 10 mg PO TID RF: 0 Follow ups/Referrals Follow ups/Referrals: SAL CHO [STAFF PHYSICIAN] - 1 WEEK (Follow up in 7-10 days ) SUZANNE MCCRACKEN [REFERRING] - 1 WEEK Instructions Stand Alone Forms: Excuse From Work or School, Precautions for COVID19, Patient Portal, Social Distancing
== END 2020-08-10 18:30 | disposition home or self-care (01) | DRG 948 ==
LOC: ER 08:33 → MED/SURG 10:40
PROVIDERS: ADMIT Internal Medicine; ATTEND Internal Medicine

== ENCOUNTER 2021-10-19 19:29 | Inpatient (IN) ==
[2021-10-19 20:05] VITALS: BMI 18.8
[2021-10-19] MEDS ORDERED: NORMODYNE INJ 20 MG VIAL ONE (20:13)
[2021-10-19] MEDS ORDERED: LABETALOL HCL IVP ONE ×2 (20:13→22:09)
--- NOTE | 2021-10-19 20:21 | DR.WEAKNES ---
HPI Time Seen Time Seen by Provider: 10/19/21 20:19 Primary Care Physician Primary Care Physician: chito HPI Comment HPI Comment: PATIENT IS 66YR OLD FEMALE WITH CERVICAL CANCER, LAST CHEMO 09/20/2021 IN ER WITH GENERALIZED WEAKNESS AND ELEVATED BP FOR 2 WEEKS. WAS CONFUSE TODAY PER GRANDDAUGHTER. DENIES FEVER, CHEST PAIN OR DYSURIA. HAVING DIFFUSE ABDOMINAL PAIN THAT IS CHRONIC BUT WORSE TODAY ALSO. NO VOMITING OR DIARRHEA. SLIGHT COUGH AND SOB. BP ELEVATED IN ER AND PATIENT HAVING HEADACHE. Complaints Chief Complaint Doctors Comments: ELEVATED BP TIMES 2 WEEKS. PATIENT CONFUSE TONIGHT PER GRAND DAUGHTER. Chief Complaint:: granddaughter states" she's having stroke symptoms" I ASKED WHAT THE SX ARE. GRANDDAUGHTER STATES" SHE COULDN'T TELL MY HOW TO CHECK A TEMP. SHE'S NOT ACTING RIGHT" PT TELLS ME SHE IS A CANCER PT LAST TOOK CHEMO Sep PT STATES" I THINK THE CHEMO IS TO STRONG FOR ME IT HAS MADE ME SO WEAK AND MY HEAD HURTS SO BAD MY BLOOD PRESSURE HAS BEEN UP FOR 2 WEEKS NOW" Reviewed Nurses Notes Reviewed: Yes Source History Provided: Patient Mode of Arrival Mode of Arrival: Wheelchair Timing Onset of Chief Complaint: 10/19/21 Since onset, symptoms are:: Unchanged Symptom Onset: Unknown Duration Duration: Constant Duration: Hours Context Onset: Spontaneous and At rest Symptoms: Weakness History of: None Stroke Symptoms: Acute confusion Location Weakness Location: Generalized Associated Signs and Symptoms Associated Signs and Symptoms: Altered Mental Status PMH PMH Past Medical History: Yes Past Medical History: GERD Past Medical History Comment: CANCER CERVICAL Past Surgical History: Yes Surgical History: Hysterectomy, Spleenectomy and Tonsillectomy Past Surgical History Comment: PAC LT CW Family History History of Family Medical Conditions: Yes Family Medical History: Diabetes Mellitus, Cancer, [place] and Coronary Artery Disease Social History Does patient currently use any type of tobacco product: Yes Have you used tobacco products in the last 12 months: Yes Type of Tobacco Use: Cigarettes Does any household member use tobacco: No Alcohol Use: None Do you use any recreational Drugs:: No Lives With: Family Lives Where: Home Infectious screening In the last 2 months have you had wt loss of >10#?: NO Have you had fever, night sweats or hemotysis?: No Have you traveled outside the country in the last 6 months?: No Isolation: Standard ROS Review of Systems Constitutional: See HPI, Weakness and Fatigue; negative Fever Eyes: No Symptoms Reported and See HPI; negative Blurred Vision and Diplopia ENTM: See HPI and Nose Congestion; negative Nose Discharge Respiratoy: See HPI, Moist Cough and Short of Breath; negative Wheezing Cardiovascular: No Symptoms Reported and See HPI; negative Chest Pain, Edema and Syncope Gastrointestinal/Abdominal: No Symptoms Reported, See HPI and Abdominal Pain; negative Diarrhea, Nausea and Vomiting Genitourinary: No Symptoms Reported and See HPI; negative Dysuria Neurological: See HPI, Headache and Weakness; negative Dizziness Musculoskeletal: No Symptoms Reported and See HPI; negative Back Pain and Muscle Pain Integumentary: No Symptoms Reported and See HPI; negative Rash and Juandice Hematologic/Lymphatic: See HPI and Easy Bruising Endocrine: No Symptoms Reported and See HPI; negative Increased Thirst and Increased Urine Psychiatric: No Symptoms Reported and See HPI All Other Systems: Reviewed and Negative Unable to Obtain Due To: Altered mental status PE Vital Signs Vitals: Temperature 98.2 F Pulse Rate 57 Respiratory Rate 11 Blood Pressure [Right Arm] 143/83 Blood Pressure 153/95 O2 Sat by Pulse Oximetry 100 General Limitations: Altered Mental Status General Appearance: Alert and In No Apparent Distress Head Head Exam: Normal Inspection, Atraumatic and Normocephalic Head Exam Physical: Other (NONE KNOWN.) Eyes Eye exam: Normal Appearance and PERRL; negative Scleral Icterus and Conjunctival Injection Eyelids: Normal Inspection: Bilateral Pupils: Regular, Round: Bilateral and Reactive: Bilateral Sclera/Conjunctival: Normal Inspection: Bilateral ENT ENT Exam: Normal Exam, Normal Oropharynx, Normal External Ear Exam and TM's Normal Bilaterally Mouth Exam: Normal Inspection; negative Lip Swelling and Tongue Swelling Throat Exam: Normal Inspection; negative Tonsillar Erythema, Tonsillomegaly and Tonsillar Exudate Neck Neck Exam: Normal Inspection and Trachea Midline; negative Tenderness Chest Chest Inspection: Normal Inspection and Symmetric Chest Wall Rise; negative Tenderness Respiratory Respiratory Exam: Respiratory Distress; negative Accessory Muscle Use and Chest Wall Tenderness Respiratory Exam: Bilateral: Rhonchi and Lower: Rhonchi Cardiovascular Cardiovascular Exam: Regular Rate, Normal Rhythm and Normal Heart Sounds; negati ve Systolic Murmur and Diastolic Murmur Abdominal Exam Abdominal Exam: Normal Bowel Sounds, Soft and Tenderness Abdominal Tenderness: Diffuse and Moderate Extremities Extremities Exam: Normal Inspection and Normal Capillary Refill Back Back Exam: Normal Inspection; negative (R) CVA Tenderness and (L) CVA Tenderness Neurologic Neurological Exam: Alert and Oriented X3; negative Motor Sensory Deficit Patient Oriented To: Person and Place Speech: Fluid Speech Cranial Nerve Exam: EOM Function (II, III, IV, ): Normal, Facial Palsy (VII): Normal, Gag reflex (XI): Normal and Tongue Deviation: Normal Motor Strength - LUE: 5/5 Motor Strength - RUE: 5/5 Motor Strength - LLE: 5/5 Motor Strength - RLE: 5/5 Upper Motor Neuron Exam: Babinski Sign: Normal Psychiatric Psychiatric Exam: Normal Affect Skin Skin Exam: Dry; negative Rash MDM Differential Diagnosis Differential Diagnosis: CVA, Electrolyte Disorder, Hypoglycemia and Mass Lesion Differential Diagnosis Comment: OK, PNEUMONIA, UTI, COURSE Treatment Treatment: SEE ORDERS. PATIENT INTUBATED IN ER DUE TO RESPIRATORY FAILURE. LABETALOL 10MG IV IN ER. NS IL AND KCL 40MEQ AT 250CC/HR IN ER. DISCUSSED PATIENT LABS REPORT AND XRAY AND CT REPORT AND HER CONDITION WITH HER FAMILY. WHILE IN ER HER CONDITION DETERIRATED. HER TROPONIN LEVEL IN OK RANGE.PATIENT STARTED ON HEPARIN DRIP. UNABLE TO TRANSFER PATIENT TO [facility] WITH GRAINING PRESS OPERATOR BECAUSE THE HOSPITALS ARE AT CAPACITY AND ARE NOT TAKING TRANSFERS DUE TO COVID. MANAGER PRICING DR AT OUR HOSP[facility] WILL ADMIT PATIENT. DISCUSSED THIS WITH FAMILY. Reevaluation 1st: Unchanged 2nd: Unchanged 3rd: Unchanged Consultation Consultation Comments: PATIENT DISCUSSED WITH DR. ANGEL. HE WILL ADMIT PATIENT. Education/Counseling Education/Counseling: Patient and Family Educated On: Diagnosis Critical Care Notes Total Time (mins): 60 Critical Diagnosis: RESPIRATORY FAILURE, OK. Critical Interventions: STAY AT PATIENT BEDSIDE MONITORING HER CONDITION AND MANAGING PATIENT AND DISCUSSING HER CONDITION WITH HER FAMILY. ROR Labs Reviewed Laboratory Results Reviewed?: Yes Result Diagrams: 10/25/21 04:50 10/25/21 04:50 Laboratory: WBC 14.4 X10^3/uL (3.6-10.0) H 10/20/21 06:15 RBC 2.94 X10^6/uL (3.5-5.4) L 10/20/21 06:15 Hgb 9.8 g/dL (12.0-16.0) L 10/20/21 06:15 Hct 28.6 % (36.0-47.0) L 10/20/21 06:15 MCV 97.0 fL (80.0-100.0) 10/20/21 06:15 MCH 33.2 pg (27.0-34.0) 10/20/21 06:15 MCHC 34.2 g/dL (33.0-35.0) 10/20/21 06:15 RDW 18.4 % (11.6-16.5) H 10/20/21 06:15 Plt Count 200 X10^3/uL (150.0-450.0) 10/20/21 06:15 Plt Count Comment Adequate (ADEQUATE) 10/20/21 06:15 MPV 7.7 fL (7.4-11.0) 10/20/21 06:15 Neut % (Auto) 83.2 % (42.0-75.0) H 10/20/21 06:15 Lymph % (Auto) 7.7 % (21.0-51.0) L 10/20/21 06:15 [place] % (Auto) 8.3 % (0.0-13.0) 10/20/21 06:15 Eos % (Auto) 0.0 % (0.9-2.9) L 10/20/21 06:15 Baso % (Auto) 0.8 % (0.2-1.0) 10/20/21 06:15 Neut # (Auto) 12.0 x10^3/uL (2.2-4.8) H 10/20/21 06:15 Lymph # (Auto) 1.1 X10^3/uL (1.3-2.9) L 10/20/21 06:15 [place] # (Auto) 1.2 x10^3/uL (0.3-0.8) H 10/20/21 06:15 Eos # (Auto) 0.0 x10^3/uL (0.0-0.2) 10/20/21 06:15 Baso # (Auto) 0.1 X10^3/uL (0.0-0.1) 10/20/21 06:15 Absolute Nucleated RBC 0.0 /100WBC 10/20/21 06:15 Plt Morphology Comment Normal (NORMAL) 10/20/21 06:15 RBC Morphology Abnormal (NORMAL) A 10/20/21 06:15 Poikilocytosis 1+ A 10/20/21 06:15 Anisocytosis Slight A 10/20/21 06:15 Helmet Cells Present 10/20/21 06:15 Schistocytes Present 10/20/21 06:15 PT 12.6 SECONDS (11.8-14.3) 10/19/21 20:15 INR Target Range - 10/19/21 20:15 INR 0.99 (0.8-1.3) 10/19/21 20:15 APTT 26.4 SECONDS (22.9-36.5) 10/19/21 20:15 PTT Comment - 10/19/21 20:15 Fibrinogen 470 mg/dL (239-489) 10/19/21 20:15 Sample Site Rrad 10/20/21 06:09 ABG pH 7.480 (7.35-7.45) H 10/20/21 06:09 ABG pCO2 40.0 mmHg (35.0-45.0) 10/20/21 06:09 ABG pO2 235.0 mmHg (80.0-100.0) H 10/20/21 06:09 ABG HCO3 29.8 mmol/L (22-26) H 10/20/21 06:09 ABG O2 Saturation 100.0 % (90-100) 10/20/21 06:09 ABG Base Excess 5.8 mmol/L (-2.0-2.0) H 10/20/21 06:09 Rufus Test Pos 10/20/21 06:09 A-a Gradient 214.0 mmHg 10/20/21 06:09 FiO2 70.0 10/20/21 06:09 Blood Gas Comments Nicki wellk-mtf 10/20/21 06:09 Sodium 147 mmol/L (136-145) H 10/20/21 06:15 Corrected Sodium TNP 10/20/21 06:15 Potassium 3.1 mmol/L (3.5-5.1) L 10/20/21 06:15 Chloride 112 mmol/L (98-107) H 10/20/21 06:15 Carbon Dioxide 25.0 mmol/L (21-32) 10/20/21 06:15 BUN 12 mg/dL (7-18) 10/20/21 06:15 Creatinine 0.90 mg/dL (0.55-1.02) 10/20/21 06:15 Est GFR (MDRD) Af Amer > 60 (>60) 10/20/21 06:15 Est GFR (MDRD) Non-Af > 60 (>60) 10/20/21 06:15 Glucose 78 mg/dL (65-99) 10/20/21 06:15 Calcium 7.9 mg/dL (8.5-10.1) L 10/20/21 06:15 Corrected Calcium 9.1 mg/dL (8.5-10.1) 10/20/21 06:15 Total Bilirubin 1.70 mg/dL (0.2-1.0) H 10/20/21 06:15 AST 655 Units/L (15-37) H 10/20/21 06:15 ALT 378 Units/L (12-78) H 10/20/21 06:15 Alkaline Phosphatase 116 Units/L (46-116) 10/20/21 06:15 Creatine Kinase 230 Units/L (26-192) H 10/20/21 06:15 CK-MB (CK-2) 4.0 ng/mL (0-4.0) 10/20/21 06:15 CK/CKMB % Calc 1.7 % (<4) 10/20/21 06:15 Troponin I High Sens 397.9 ng/L (4.0-60.0) H* 10/20/21 06:15 Total Protein 5.6 g/dL (6.4-8.2) L 10/20/21 06:15 Albumin 2.5 g/dL (3.4-5.0) L 10/20/21 06:15 Globulin 3.1 g/dL (2.5-4.5) 10/20/21 06:15 Albumin/Globulin Ratio 0.8 Ratio (1.1-2.1) L 10/20/21 06:15 Specimen Type Catherized urine 10/20/21 03:15 Urine Color [place] (YELLOW) 10/20/21 03:15 Urine Appearance Clear (CLEAR) 10/20/21 03:15 Urine pH 6.0 (5.0 - 8.0) 10/20/21 03:15 Ur Specific [place] 1.025 (1.000-1.030) 10/20/21 03:15 Urine Protein 4+ (NEGATIVE) 10/20/21 03:15 Urine Glucose (UA) 1+ (NEGATIVE) 10/20/21 03:15 Urine Ketones Negative (NEGATIVE) 10/20/21 03:15 Urine Occult Blood 5+ (NEGATIVE) 10/20/21 03:15 Urine Nitrite Negative (NEGATIVE) 10/20/21 03:15 Urine Bilirubin Negative (NEGATIVE) 10/20/21 03:15 Urine Urobilinogen 1+ (NORMAL) 10/20/21 03:15 Ur Leukocyte Esterase Negative (NEGATIVE) 10/20/21 03:15 Urine RBC 5-10 /HPF (0-3) A 10/20/21 03:15 Urine WBC 0-2 /HPF (0-5) 10/20/21 03:15 Ur Squamous Epith Cells Rare /HPF (NEGATIVE) 10/20/21 03:15 Urine Bacteria Trace /HPF (NEGATIVE) 10/20/21 03:15 Hyaline Casts Numerous /LPF (NEGATIVE) 10/20/21 03:15 Urine Mucus Few /HPF (NEGATIVE) 10/20/21 03:15 Ur Culture Indicated? No/not indicated 10/20/21 03:15 SARS CoV-2 RNA Rapid GANESH Negative (NEGATIVE) 10/19/21 22:18 XRAY XRAY Interpreted by: Radiologist (REPORTS NOTED AND DISCUSSED WITH FAMILY.) and Self EKG Rate: 75 [place]: Normal Rhythm: NSR Block: None Hypertrophy: None ST: Nonsp Opioid Opioid Risk Tool Age (Alexander box if 16-45): No History of Preadolescent Sexual Abuse: No Total: 0 Total Score Risk Category: Low Risk Copyright: Bobby FLEMING predicting aberrant behaviors Diagnosis Discharge Problem: Hypokalemia, Non Q wave myocardial infarction Respiratory failure Qualifiers: Chronicity: acute Respiratory failure complication: hypoxia Qualified Code(s): J96.01 - Acute respiratory failure with hypoxia Altered mental status Qualifiers: Altered mental status type: transient alteration of awareness Qualified Code(s): R40.4 - Transient alteration of awareness Instructions Instructions: Fall Prevention in the Home, Adult, [id number] Hypokalemia Home Oxygen Use, Adult Hypoxia Chronic Obstructive Pulmonary Disease, [id number] Hypertension, Adult, [id number] Acute Respiratory Failure, Adult Forms: Precautions for COVID19 [facility] Patient Portal Social Distancing
[2021-10-19 20:29] LABS: BASOPHILS # (AUTO) 0.1 X10^3/uL (0.0-0.1); BASOPHILS % (AUTO) 1.2 % (0.2-1.0); EOSINOPHILS # (AUTO) 0.4 x10^3/uL (0.0-0.2); EOSINOPHILS % (AUTO) 2.9 % (0.9-2.9); HEMATOCRIT 30.6 % (36.0-47.0); HEMOGLOBIN 10.6 g/dL (12.0-16.0); LYMPHOCYTES # (AUTO) 2.1 X10^3/uL (1.3-2.9); LYMPHOCYTES % (AUTO) 16.2 % (21.0-51.0); MEAN CORPUSCULAR HEMOGLOBIN 33.3 pg (27.0-34.0); MEAN CORPUSCULAR HGB CONC 34.5 g/dL (33.0-35.0); MEAN CORPUSCULAR VOLUME 96.5 fL (80.0-100.0); MEAN PLATELET VOLUME 7.8 fL (7.4-11.0); MONOCYTES # (AUTO) 1.2 x10^3/uL (0.3-0.8); MONOCYTES % (AUTO) 9.7 % (0.0-13.0); NEUTROPHILS # (AUTO) 8.9 x10^3/uL (2.2-4.8); RED BLOOD COUNT 3.17 X10^6/uL (3.5-5.4); RED CELL DISTRIBUTION WIDTH 18.2 % (11.6-16.5); WHITE BLOOD COUNT 12.7 X10^3/uL (3.6-10.0)
[2021-10-19] MEDS ORDERED: ZOFRAN INJ 4 MG VIAL ONE (20:34)
[2021-10-19] MEDS ORDERED: ZOFRAN INJ 4 MG VIAL IVP ONE (20:34)
[2021-10-19 20:52] LABS: ALANINE AMINOTRANSFERASE 16 Units/L (12-78); ALBUMIN 2.8 g/dL (3.4-5.0); ALKALINE PHOSPHATASE 127 Units/L (46-116); ASPARTATE AMINO TRANSFERASE 38 Units/L (15-37); BLOOD UREA NITROGEN 8 mg/dL (7-18); CALCIUM 8.6 mg/dL (8.5-10.1); CARBON DIOXIDE 26.9 mmol/L (21-32); CHLORIDE 106 mmol/L (98-107); CKMB % 1.4 % (<4); COR CA(FOR HYPOALB) 9.6 mg/dL (8.5-10.1); CREATINE KINASE 152 Units/L (26-192); CREATINE KINASE MB 2.1 ng/mL (0-4.0); CREATININE 0.75 mg/dL (0.55-1.02); SODIUM 144 mmol/L (136-145); TOTAL PROTEIN 6.3 g/dL (6.4-8.2); eGFR NON BLACK RACES > 60 (>60)
[2021-10-19 20:58] LABS: PLATELET MORPHOLOGY COMMENT NORMAL (NORMAL)
[2021-10-19 21:00] LABS: SCHISTOCYTES PRESENT
[2021-10-19] MEDS ORDERED: NS + KCL 40 MEQ/L 1,000 ML IV ONE (21:10)
--- NOTE | 2021-10-19 21:27 | CT ---
HISTORYStroke-like symptoms.STUDYBRAIN W/O CONCOMPARISONNone available.TECHNIQUEAxial non-contrast images of the head were obtained with coronal and sagittal reformats provided.Radiation dose: 1258.70 mGy-cm total DLPFINDINGSNo abnormal areas of acute attenuation in the brain parenchyma.Crooks-white differentiation remains intact.No intracranial, extra-axial, fluid collection.No hemorrhage.Periventricular chronic microvascular disease.No mass, mass effect or midline shift.Age related brain parenchymal global atrophy.No ventriculomegaly.No acute fracture.Sinuses are well aerated.Mastoid air cells are well aerated.Globes and intra-orbital contents are unremarkable.IMPRESSIONNo acute intracranial abnormality identified.Electronically signed by: Christiano Gramajo (Oct 19, 2021 21:25:42)
[2021-10-19] MEDS ORDERED: NS + KCL 40 MEQ/L 1,000 ML IV SCH (22:00)
[2021-10-19 23:02] LABS: CKMB % 1.4 % (<4); CREATINE KINASE MB 2.3 ng/mL (0-4.0)
[2021-10-19 23:07] LABS: ABG HCO3 28.5 mmol/L (22-26)
[2021-10-19 23:08] LABS: ABG ALLEN TEST POS
[2021-10-20] MEDS ORDERED: NS 1,000 ML IV 1,000 ML ONE (01:19)
[2021-10-20 01:33] LABS: ABG BASE EXCESS 3.4 mmol/L (-2.0-2.0)
[2021-10-20 01:34] LABS: ABG ALLEN TEST POS; ABG HCO3 31.2 mmol/L (22-26)
[2021-10-20] MEDS ORDERED: NS 1,000 ML IV 1,000 ML IV SCH ×2 (02:00→09:00)
[2021-10-20] MEDS ORDERED: ZOFRAN INJ 4 MG VIAL ONE (02:06)
[2021-10-20] MEDS ORDERED: ZOFRAN INJ 4 MG VIAL IVP ONE (02:09)
[2021-10-20] MEDS ORDERED: VERSED ONE ×2 (02:32→04:07)
[2021-10-20] MEDS ORDERED: DIPRIVAN PREMIX 1 GRAM IV 1,000 MG/100 ML VIAL ONE ×2 (02:33→08:51)
[2021-10-20] MEDS ORDERED: QUELICIN (OR ANECTINE) ONE (02:33)
[2021-10-20] MEDS ORDERED: VERSED IVP ONE (02:44)
[2021-10-20] MEDS ORDERED: QUELICIN (OR ANECTINE) IVP ONE ×2 (02:45→02:57)
[2021-10-20] MEDS: DIPRIVAN PREMIX 1 GRAM IV 1,000 MG/100 ML VIAL IV PRN ×4 (02:49→17:10)
[2021-10-20] MEDS ORDERED: NS + KCL 20 MEQ/L 1,000 ML IV ONE (03:18)
[2021-10-20] MEDS: NS + KCL 20 MEQ/L 1,000 ML IV SCH ×3 (03:25→21:55)
[2021-10-20 03:43] LABS: BILIRUBIN,URINE NEGATIVE (NEGATIVE); BLOOD/HEMOGLOBIN,URINE 5+ (NEGATIVE); GLUCOSE, URINE 1+ (NEGATIVE); KETONES,URINE NEGATIVE (NEGATIVE); LEUKOCYTE ESTERASE ,URINE NEGATIVE (NEGATIVE); NITRITES,URINE NEGATIVE (NEGATIVE); PROTEIN,URINE 4+ (NEGATIVE); UROBILINOGEN,URINE 1+ (NORMAL)
[2021-10-20 03:43] LABS: ABG BASE EXCESS 1.8 mmol/L (-2.0-2.0); ABG HCO3 28.2 mmol/L (22-26)
[2021-10-20 03:44] LABS: ABG ALLEN TEST POS
[2021-10-20 03:58] LABS: APPEARANCE,URINE CLEAR (CLEAR); COLOR,URINE AMBER (YELLOW)
[2021-10-20 03:59] LABS: BACTERIA,URINE TRACE /HPF (NEGATIVE); HYALINE CASTS, URINE NUMEROUS /LPF (NEGATIVE); SQUAMOUS EPITHELIAL CELL,UR RARE /HPF (NEGATIVE)
[2021-10-20] MEDS ORDERED: NS 100 ML IV 100 ML ONE ×2 (04:08→12:59)
--- NOTE | 2021-10-20 04:08 | RAD ---
STUDY: CHEST, 1 VIEWCOMPARISON: 10/05/2020HISTORY: ET TUBE PLACEMENTFINDINGS:Tip of endotracheal tube is seen located 2.9 cm above the sudheer. Left subclavian chemotherapy port is again seen and appear stable. The cardiomediastinal contour is stable.Diffuse multifocal alveolar airspace disease is seen involving the right lung and left lower lung zone. No pleural effusion or gross pneumothorax is seen.IMPRESSION:Tip of endotracheal tube is located 2.9 cm above the sudheer.Electronically signed by: Sourav Crystal (Oct 20, 2021 04:06:47)
[2021-10-20] MEDS: VERSED 100 MG in NS 100 ML IV 80 ML IV PRN ×2 (04:23→20:58)
[2021-10-20 06:12] LABS: ABG BASE EXCESS 5.8 mmol/L (-2.0-2.0); ABG HCO3 29.8 mmol/L (22-26)
[2021-10-20 06:13] LABS: ABG ALLEN TEST POS
[2021-10-20 06:31] LABS: BASOPHILS # (AUTO) 0.1 X10^3/uL (0.0-0.1); BASOPHILS % (AUTO) 0.8 % (0.2-1.0); HEMATOCRIT 28.6 % (36.0-47.0); HEMOGLOBIN 9.8 g/dL (12.0-16.0); LYMPHOCYTES # (AUTO) 1.1 X10^3/uL (1.3-2.9); LYMPHOCYTES % (AUTO) 7.7 % (21.0-51.0); MEAN CORPUSCULAR HEMOGLOBIN 33.2 pg (27.0-34.0); MEAN CORPUSCULAR HGB CONC 34.2 g/dL (33.0-35.0); MEAN PLATELET VOLUME 7.7 fL (7.4-11.0); MONOCYTES # (AUTO) 1.2 x10^3/uL (0.3-0.8); MONOCYTES % (AUTO) 8.3 % (0.0-13.0); NEUTROPHILS % (AUTO) 83.2 % (42.0-75.0); RED BLOOD COUNT 2.94 X10^6/uL (3.5-5.4); RED CELL DISTRIBUTION WIDTH 18.4 % (11.6-16.5); WHITE BLOOD COUNT 14.4 X10^3/uL (3.6-10.0)
[2021-10-20 07:02] LABS: ANISOCYTOSIS SLIGHT; HELMET CELLS PRESENT; PLATELET MORPHOLOGY COMMENT NORMAL (NORMAL); POIKILOCYTOSIS 1+; SCHISTOCYTES PRESENT
[2021-10-20 07:59] LABS: ALANINE AMINOTRANSFERASE 378 Units/L (12-78); ALBUMIN 2.5 g/dL (3.4-5.0); ALKALINE PHOSPHATASE 116 Units/L (46-116); ASPARTATE AMINO TRANSFERASE 655 Units/L (15-37); BLOOD UREA NITROGEN 12 mg/dL (7-18); CALCIUM 7.9 mg/dL (8.5-10.1); CHLORIDE 112 mmol/L (98-107); CKMB % 1.7 % (<4); COR CA(FOR HYPOALB) 9.1 mg/dL (8.5-10.1); CREATINE KINASE 230 Units/L (26-192); SODIUM 147 mmol/L (136-145); TOTAL PROTEIN 5.6 g/dL (6.4-8.2); eGFR NON BLACK RACES > 60 (>60)
[2021-10-20] MEDS ORDERED: DUKE'S Magic Mouthwash (nyst/dex/ben/doxyc) MT PRN ×2 (09:54→10:10)
[2021-10-20] MEDS ORDERED: LOVENOX INJ 40 MG SYR SC SCH (10:00)
[2021-10-20 10:12] LABS: ABG BASE EXCESS 3.6 mmol/L (-2.0-2.0); ABG HCO3 26.3 mmol/L (22-26)
[2021-10-20 10:14] LABS: ABG ALLEN TEST POS
[2021-10-20] MEDS: LACRI-LUBE S.O.P. AFFEYE SCH ×2 (10:59→20:55)
[2021-10-20] MEDS: VIBRAMYCIN 100 MG in D5W 250 ML IV 250 ML IV SCH ×2 (11:22→20:56)
[2021-10-20] MEDS ORDERED: PHARMACY CONSULT - LOVENOX XX SCH (13:00)
[2021-10-20 13:44] LABS: CKMB % 1.6 % (<4); CREATINE KINASE MB 2.9 ng/mL (0-4.0)
[2021-10-20] MEDS: NITRO-BID OINT 2% Multi-Dose tube TD SCH ×3 (13:50→20:56)
--- NOTE | 2021-10-20 14:32 | CT ---
HISTORYELEVATED D-DIMERSTUDYCTA CHESTCOMPARISONChest radiograph from 10/20/21. CT chest from 09/16/2021.TECHNIQUECTA chest protocol with axial images from the thoracic inlet to upper abdomen with IV contrast. Sagittal and coronal reformats and MIP images were created. Automated exposure control was utilized.FINDINGSET tube is present with tip in good position.The visualized thyroid gland appears benign. Moderately atherosclerotic normal caliber thoracic aorta. Lack of contrast within the thoracic aorta limits evaluation for aortic injury. Pulmonary artery is normal in caliber centrally. No filling defect is identified to suggest pulmonary embolism. The heart is borderline in size. No pericardial effusion. Mild coronary artery calcifications at the LAD and left circumflex. Re-demonstration of mildly thick walled cystic lesions in the upper abdomen with mass effect on the liver. The dominant lesion to the right of the right priyanka liver measures approximately 12.5 x 4.5 cm on image 128 series 4, similar to prior study. Fluid collection along the anterior margin of the left priyanka liver slightly larger than prior measuring 3.1 x 1.2 cm image 141 series 4 versus 2.1 x 0.9 cm on prior study. Peroneal nodules are again noted in the left upper quadrant. There is reflux of contrast into the IVC. Left chest wall port with tip in the SVC obscured by contrast. No acute osseous abnormality. There is minimal debris in the dependent distal trachea image 46 series 5. There is mild COPD. Mild scattered bilateral ground-glass opacities such as at the right middle and right lower lobe image 93 series 5. Moderate right and small left pleural effusion with associated mild subsegmental atelectasis.IMPRESSIONNegative for PE.Mild COPD. Mild scattered ground-glass opacities are nonspecific but can be seen with pulmonary edema and atypical pneumonia in the acute setting.Moderate right and small left pleural effusions with associated opacities likely subsegmental atelectasis.Redemonstration of irregular fluid collection with mass effect on the liver as well as peritoneal nodules suspicious for metastasis. Fluid collection/metastasis along the anterior margin of the left priyanka liver is slightly larger than prior.Electronically signed by: Rudy Blanco (Oct 20, 2021 14:30:34)
[2021-10-20 19:45] LABS: CKMB % 1.1 % (<4); CREATINE KINASE MB 2.2 ng/mL (0-4.0)
[2021-10-20] MEDS: PULMICORT NEB TX 0.5 MG NEB SCH (20:50)
[2021-10-20] MEDS: BROVANA IN SCH (20:50)
[2021-10-20] MEDS: LOVENOX INJ 40 MG SYR SC SCH (20:57)
[2021-10-21] MEDS: DIPRIVAN PREMIX 1 GRAM IV 1,000 MG/100 ML VIAL IV PRN (02:31)
[2021-10-21 04:58] LABS: ABG ALLEN TEST POS; ABG BASE EXCESS 0.6 mmol/L (-2.0-2.0); ABG HCO3 24.3 mmol/L (22-26)
[2021-10-21 06:06] LABS: BASOPHILS # (AUTO) 0.1 X10^3/uL (0.0-0.1); BASOPHILS % (AUTO) 0.9 % (0.2-1.0); EOSINOPHILS # (AUTO) 0.8 x10^3/uL (0.0-0.2); EOSINOPHILS % (AUTO) 5.3 % (0.9-2.9); HEMATOCRIT 28.1 % (36.0-47.0); HEMOGLOBIN 9.5 g/dL (12.0-16.0); LYMPHOCYTES # (AUTO) 1.7 X10^3/uL (1.3-2.9); LYMPHOCYTES % (AUTO) 11.5 % (21.0-51.0); MEAN CORPUSCULAR HEMOGLOBIN 33.5 pg (27.0-34.0); MEAN CORPUSCULAR HGB CONC 33.7 g/dL (33.0-35.0); MEAN CORPUSCULAR VOLUME 99.4 fL (80.0-100.0); MEAN PLATELET VOLUME 10.5 fL (7.4-11.0); MONOCYTES # (AUTO) 1.5 x10^3/uL (0.3-0.8); MONOCYTES % (AUTO) 10.3 % (0.0-13.0); NEUTROPHILS # (AUTO) 10.8 x10^3/uL (2.2-4.8); RED BLOOD COUNT 2.83 X10^6/uL (3.5-5.4); RED CELL DISTRIBUTION WIDTH 18.2 % (11.6-16.5)
[2021-10-21 06:14] LABS: ALANINE AMINOTRANSFERASE 372 Units/L (12-78); ALBUMIN 2.1 g/dL (3.4-5.0); ALKALINE PHOSPHATASE 107 Units/L (46-116); ASPARTATE AMINO TRANSFERASE 519 Units/L (15-37); BLOOD UREA NITROGEN 12 mg/dL (7-18); CALCIUM 7.2 mg/dL (8.5-10.1); CARBON DIOXIDE 23.1 mmol/L (21-32); CHLORIDE 113 mmol/L (98-107); COR CA(FOR HYPOALB) 8.7 mg/dL (8.5-10.1); MAGNESIUM 1.5 mg/dL (1.7-2.9); SODIUM 148 mmol/L (136-145); TOTAL PROTEIN 5.1 g/dL (6.4-8.2); eGFR NON BLACK RACES > 60 (>60)
[2021-10-21] MEDS: NITRO-BID OINT 2% Multi-Dose tube TD SCH ×4 (07:28→21:56)
[2021-10-21] MEDS: NS + KCL 20 MEQ/L 1,000 ML IV SCH ×2 (07:28→08:30)
[2021-10-21] MEDS: LOVENOX INJ 40 MG SYR SC SCH ×2 (08:12→21:57)
[2021-10-21] MEDS: LACRI-LUBE S.O.P. AFFEYE SCH ×2 (08:21→21:55)
[2021-10-21] MEDS: VIBRAMYCIN 100 MG in D5W 250 ML IV 250 ML IV SCH ×2 (08:23→21:56)
[2021-10-21] MEDS: PULMICORT NEB TX 0.5 MG NEB SCH ×2 (09:09→22:41)
[2021-10-21] MEDS: BROVANA IN SCH ×2 (09:09→22:41)
[2021-10-21] MEDS: NS 1/2 + KCL 20 MEQ/L 1,000 ML IV SCH ×2 (09:33→17:58)
[2021-10-21] MEDS ORDERED: MORPHINE SULFATE INJ 2 MG INJ IVP ONE (14:45)
[2021-10-21] MEDS: COREG TAB 25 MG PO SCH ×2 (14:57→21:57)
[2021-10-21] MEDS: MORPHINE SULFATE INJ 2 MG INJ IVP PRN (20:28)
[2021-10-21] MEDS ORDERED: ZOFRAN TAB 4 MG SL PRN (20:29)
[2021-10-22] MEDS: NITRO-BID OINT 2% Multi-Dose tube TD SCH ×3 (02:50→15:54)
[2021-10-22] MEDS: MORPHINE SULFATE INJ 2 MG INJ IVP PRN ×3 (02:50→14:48)
[2021-10-22] MEDS: ZOFRAN INJ 4 MG VIAL IVP PRN ×2 (02:58→08:59)
[2021-10-22] MEDS: NS 1/2 + KCL 20 MEQ/L 1,000 ML IV SCH ×3 (06:18→17:59)
[2021-10-22 06:51] LABS: BASOPHILS # (AUTO) 0.1 X10^3/uL (0.0-0.1); BASOPHILS % (AUTO) 0.8 % (0.2-1.0); EOSINOPHILS % (AUTO) 0.1 % (0.9-2.9); HEMATOCRIT 28.6 % (36.0-47.0); HEMOGLOBIN 9.6 g/dL (12.0-16.0); LYMPHOCYTES # (AUTO) 1.7 X10^3/uL (1.3-2.9); LYMPHOCYTES % (AUTO) 11.1 % (21.0-51.0); MEAN CORPUSCULAR HEMOGLOBIN 33.1 pg (27.0-34.0); MEAN CORPUSCULAR HGB CONC 33.4 g/dL (33.0-35.0); MEAN CORPUSCULAR VOLUME 98.9 fL (80.0-100.0); MONOCYTES # (AUTO) 1.4 x10^3/uL (0.3-0.8); MONOCYTES % (AUTO) 8.6 % (0.0-13.0); NEUTROPHILS # (AUTO) 12.5 x10^3/uL (2.2-4.8); NEUTROPHILS % (AUTO) 79.4 % (42.0-75.0); RED BLOOD COUNT 2.89 X10^6/uL (3.5-5.4); RED CELL DISTRIBUTION WIDTH 18.1 % (11.6-16.5); WHITE BLOOD COUNT 15.8 X10^3/uL (3.6-10.0)
[2021-10-22 07:07] LABS: ALANINE AMINOTRANSFERASE 277 Units/L (12-78); ALBUMIN 2.5 g/dL (3.4-5.0); ALKALINE PHOSPHATASE 145 Units/L (46-116); ASPARTATE AMINO TRANSFERASE 229 Units/L (15-37); BLOOD UREA NITROGEN 17 mg/dL (7-18); CALCIUM 7.6 mg/dL (8.5-10.1); CARBON DIOXIDE 23.1 mmol/L (21-32); CHLORIDE 111 mmol/L (98-107); COR CA(FOR HYPOALB) 8.8 mg/dL (8.5-10.1); CREATININE 0.76 mg/dL (0.55-1.02); SODIUM 144 mmol/L (136-145); eGFR NON BLACK RACES > 60 (>60)
[2021-10-22 07:36] LABS: PLATELET MORPHOLOGY COMMENT NORMAL (NORMAL)
[2021-10-22 07:37] LABS: ANISOCYTOSIS SLIGHT; BURR CELLS PRESENT; HELMET CELLS PRESENT; POIKILOCYTOSIS 1+; SCHISTOCYTES PRESENT
[2021-10-22] MEDS: VIBRAMYCIN 100 MG in D5W 250 ML IV 250 ML IV SCH (08:01)
[2021-10-22] MEDS: COREG TAB 25 MG PO SCH (08:02)
[2021-10-22] MEDS: LACRI-LUBE S.O.P. AFFEYE SCH (08:04)
[2021-10-22] MEDS: PULMICORT NEB TX 0.5 MG NEB SCH (08:50)
[2021-10-22] MEDS: BROVANA IN SCH ×2 (08:50→20:35)
[2021-10-22] MEDS: LOVENOX INJ 40 MG SYR SC SCH (09:02)
[2021-10-22] MEDS: ALTACE 5 MG CAP PO SCH (10:09)
[2021-10-22] MEDS: NITRODUR PATCH 0.4 MG/HR TD SCH (10:14)
[2021-10-22] MEDS ORDERED: PULMICORT NEB TX 0.5 MG NEB ONE (20:35)
[2021-10-22] MEDS ORDERED: BROVANA IN ONE (20:35)
[2021-10-22] MEDS ORDERED: LOVENOX INJ 40 MG SYR SC ONE (21:00)
[2021-10-22] MEDS ORDERED: COREG TAB 25 MG PO ONE (21:00)
[2021-10-23] MEDS ORDERED: PULMICORT NEB TX 0.5 MG NEB ONE (08:40)
[2021-10-23] MEDS ORDERED: BROVANA IN ONE (08:40)
[2021-10-23] MEDS ORDERED: DUONEB 0.5 MG/3 MG (3 mL) NEB ONE (13:05)
[2021-10-23] MEDS ORDERED: POTASSIUM CHL 60 MEQ/NS 0.45% 500 ML IV PRN (15:06)
[2021-10-23] MEDS ORDERED: POTASSIUM CHLORIDE LIQ 20 MEQ UDC PO PRN (15:06)
[2021-10-23] MEDS ORDERED: MICRO K EXTEN CAP 10 MEQ PO PRN (15:06)
[2021-10-23] MEDS ORDERED: K-DUR TAB 20 MEQ PO PRN (15:06)
[2021-10-23] MEDS ORDERED: KLOR-CON PO PRN (15:06)
[2021-10-23] MEDS ORDERED: K-RIDER 10 MEQ/NS 100 ML 10 MEQ/100 ML BAG IV PRN (15:06)
[2021-10-23] MEDS ORDERED: POTASSIUM CHL 40 MEQ/NS 0.45% 500 ML IV PRN (15:06)
--- NOTE | 2021-10-23 19:43 | PCM.PROG ---
Progress Note Progress Note for Day of Date of Exam: 10/23/21 Subjective Subjective: Patient wanted to go home this am but becomes hypoxic on 2L NC with walking. Her O2 sats drop to the low 80's. We will need to keep her until her O2 sats are staying at least 88% or higher. Past Medical Family Social History Past Med/Fam/Surg Hx: No changes since H&P Allergies: Allergies moxifloxacin [From Avelox] Allergy (Verified 10/12/20 15:14) penicillin G Allergy (Verified 10/12/20 15:14) acetaminophen [From Percocet] Adverse Reaction (Verified 10/12/20 15:14) NAUSEA oxycodone [From Percocet] Adverse Reaction (Verified 10/12/20 15:14) NAUSEA Review of Systems ROS: No change since H&P Vital Signs and I&O's Vital Signs: Temperature 97.4 F Pulse Rate [Right Brachial] 60 Pulse Rate 69 Respiratory Rate 16 Blood Pressure [Right Arm] 155/74 Blood Pressure 153/95 O2 Sat by Pulse Oximetry 96 Intake and Output: Intake & Output 10/21/21 10/22/21 10/23/21 10/24/21 11:59 11:59 11:59 11:59 Intake Total 4482 / 4482 3510 / 3510 120 / 120 1325 / 1325 Output Total 550 / 550 1550 / 1550 100 / 100 Balance 3932 / 3932 1960 / 1960 1325 / 1325 Physical Exam Oriented: Normal Eyes: Normal Ear: Normal Throat: Normal Respiratory: Generalized and Diminished Cardiovascular: Normal : Normal Auscultation: Bowel Sounds: Normal Palpation: Normal Tenderness: Normal Skin: Normal Musculoskeletal: Normal Psychiatric: Normal Mood Description: Calm Affect: Normal Speech Pattern: Clear and Appropriate Laboratory and Diagnostics Result Diagrams: 10/22/21 06:22 10/22/21 06:22 Labs: Laboratory WBC 15.8 X10^3/uL (3.6-10.0) H 10/22/21 06:22 RBC 2.89 X10^6/uL (3.5-5.4) L 10/22/21 06:22 Hgb 9.6 g/dL (12.0-16.0) L 10/22/21 06:22 Hct 28.6 % (36.0-47.0) L 01/21/22 06:22 MCV 98.9 fL (80.0-100.0) 10/22/21 06:22 MCH 33.1 pg (27.0-34.0) 10/22/21 06: MCHC 33.4 g/dL (33.0-35.0) 10/22/21 06:22 RDW 18.1 % (11.6-16.5) H 10/22/21 06:22 Plt Count 207 X10^3/uL (150.0-450.0) 10/22/21 06:22 Plt Count Comment Adequate (ADEQUATE) 10/22/21 06: MPV 9.0 fL (7.4-11.0) 10/22/21 06: Neut % (Auto) 79.4 % (42.0-75.0) H 10/22/21 06:22 Lymph % (Auto) 11.1 % (21.0-51.0) L 10/22/21 06:22 [place] % (Auto) 8.6 % (0.0-13.0) 10/22/21 06:22 Eos % (Auto) 0.1 % (0.9-2.9) L 10/22/21 06:22 Baso % (Auto) 0.8 % (0.2-1.0) 10/22/21 06: Neut # (Auto) 12.5 x10^3/uL (2.2-4.8) H 10/22/21 06:22 Lymph # (Auto) 1.7 X10^3/uL (1.3-2.9) 10/22/21 06:22 [place] # (Auto) 1.4 x10^3/uL (0.3-0.8) H 10/22/21 06:22 Eos # (Auto) 0.0 x10^3/uL (0.0-0.2) 10/22/21 06:22 Baso # (Auto) 0.1 X10^3/uL (0.0-0.1) 10/22/21 06: Absolute Nucleated RBC 0.1 /100WBC 10/22/21 06:22 Plt Morphology Comment Normal (NORMAL) 10/22/21 06: RBC Morphology Abnormal (NORMAL) A 10/22/21 06:22 Poikilocytosis 1+ A 10/22/21 06:22 Anisocytosis Slight A 10/22/21 06:22 Helmet Cells Present 10/22/21 06:22 [place] Cells Present 10/22/21 06:22 Schistocytes Present 10/22/21 06:22 PT 12.6 SECONDS (11.8-14.3) 10/19/21 20:15 INR Target Range - 10/19/21 20:15 INR 0.99 (0.8-1.3) 10/19/21 20:15 APTT 26.4 SECONDS (22.9-36.5) 10/19/21 20:15 PTT Comment - 10/19/21 20:15 Fibrinogen 470 mg/dL (239-489) 10/19/21 20:15 D-Dimer 8.40 ug/ml (0.0-0.57) H* 10/20/21 11:28 Sample Site Lb 10/21/21 04:50 ABG pH 7.450 (7.35-7.45) 10/21/21 04:50 ABG pCO2 35.0 mmHg (35.0-45.0) 10/21/21 04:50 ABG pO2 92.0 mmHg (80.0-100.0) 10/21/21 04:50 ABG HCO3 24.3 mmol/L (22-26) 10/21/21 04:50 ABG O2 Saturation 97.0 % (90-100) 10/21/21 04:50 ABG Base Excess 0.6 mmol/L (-2.0-2.0) 10/21/21 04:50 Rufus Test Pos 10/21/21 04:50 A-a Gradient 78.0 mmHg 10/21/21 04:50 FiO2 30.0 10/21/21 04:50 Blood Gas Comments Pt sherie well llj councilperson 10/21/21 04:50 Sodium 144 mmol/L (136-145) 10/22/21 06:22 Corrected Sodium TNP 10/22/21 06:22 Potassium 3.8 mmol/L (3.5-5.1) 10/22/21 06:22 Chloride 111 mmol/L (98-107) H 10/22/21 06:22 Carbon Dioxide 23.1 mmol/L (21-32) 10/22/21 06:22 BUN 17 mg/dL (7-18) 10/22/21 06:22 Creatinine 0.76 mg/dL (0.55-1.02) 10/22/21 06:22 Est GFR (MDRD) Af Amer > 60 (>60) 10/22/21 06:22 Est GFR (MDRD) Non-Af > 60 (>60) 10/22/21 06:22 Glucose 109 mg/dL (65-99) H 10/22/21 06:22 Calcium 7.6 mg/dL (8.5-10.1) L 10/22/21 06:22 Corrected Calcium 8.8 mg/dL (8.5-10.1) 10/22/21 06:22 Magnesium 1.9 mg/dL (1.7-2.9) 10/22/21 06:22 Total Bilirubin 1.20 mg/dL (0.2-1.0) H 10/22/21 06:22 AST 229 Units/L (15-37) H 10/22/21 06:22 ALT 277 Units/L (12-78) H 10/22/21 06:22 Alkaline Phosphatase 145 Units/L (46-116) H 10/22/21 06:22 Creatine Kinase 203 Units/L (26-192) H 10/20/21 19:06 CK-MB (CK-2) 2.2 ng/mL (0-4.0) 10/20/21 19:06 CK/CKMB % Calc 1.1 % (<4) 10/20/21 19:06 Troponin I High Sens 227.5 ng/L (4.0-60.0) H* 10/20/21 19:06 Total Protein 6.0 g/dL (6.4-8.2) L 10/22/21 06:22 Albumin 2.5 g/dL (3.4-5.0) L 10/22/21 06:22 Globulin 3.5 g/dL (2.5-4.5) 10/22/21 06:22 Albumin/Globulin Ratio 0.7 Ratio (1.1-2.1) L 10/22/21 06:22 Specimen Type Catherized urine 10/20/21 03:15 Urine Color [place] (YELLOW) 10/20/21 03:15 Urine Appearance Clear (CLEAR) 10/20/21 03:15 Urine pH 6.0 (5.0 - 8.0) 10/20/21 03:15 Ur Specific [place] 1.025 (1.000-1.030) 10/20/21 03:15 Urine Protein 4+ (NEGATIVE) 10/20/21 03:15 Urine Glucose (UA) 1+ (NEGATIVE) 10/20/21 03:15 Urine Ketones Negative (NEGATIVE) 10/20/21 03:15 Urine Occult Blood 5+ (NEGATIVE) 10/20/21 03:15 Urine Nitrite Negative (NEGATIVE) 10/20/21 03:15 Urine Bilirubin Negative (NEGATIVE) 10/20/21 03:15 Urine Urobilinogen 1+ (NORMAL) 10/20/21 03:15 Ur Leukocyte Esterase Negative (NEGATIVE) 10/20/21 03:15 Urine RBC 5-10 /HPF (0-3) A 10/20/21 03:15 Urine WBC 0-2 /HPF (0-5) 10/20/21 03:15 Ur Squamous Epith Cells Rare /HPF (NEGATIVE) 10/20/21 03:15 Urine Bacteria Trace /HPF (NEGATIVE) 10/20/21 03:15 Hyaline Casts Numerous /LPF (NEGATIVE) 10/20/21 03:15 Urine Mucus Few /HPF (NEGATIVE) 10/20/21 03:15 Ur Culture Indicated? No/not indicated 10/20/21 03:15 SARS CoV-2 RNA Rapid GANESH Negative (NEGATIVE) 10/19/21 22:18 Plan (1) Hypoxia: Status: Acute (2) Anxiety: Status: Acute (3) Respiratory failure: Status: Acute Qualifiers: Chronicity: acute Respiratory failure complication: hypoxia Qualified Code(s): J96.01 - Acute respiratory failure with hypoxia (4) Altered mental status: Status: Acute Qualifiers: Altered mental status type: transient alteration of awareness Qualified Code(s): R40.4 - Transient alteration of awareness (5) GERD (gastroesophageal reflux disease): Status: Acute
[2021-10-23] MEDS: BROVANA IN SCH (19:45)
[2021-10-23] MEDS: VIBRAMYCIN 100 MG in D5W 250 ML IV 250 ML IV SCH (22:38)
[2021-10-23] MEDS: LACRI-LUBE S.O.P. AFFEYE SCH (22:41)
[2021-10-23] MEDS: COREG TAB 25 MG PO SCH (22:41)
[2021-10-23] MEDS: LOVENOX INJ 40 MG SYR SC SCH (22:47)
[2021-10-24] MEDS: NS 1/2 + KCL 20 MEQ/L 1,000 ML IV SCH ×4 (01:15→21:41)
[2021-10-24] MEDS: MAGNESIUM SULFATE 1 GRAM/100 mL PREMIX 1 G/100 ML BAG IV PRN ×2 (01:35→02:31)
[2021-10-24 07:07] LABS: BASOPHILS # (AUTO) 0.1 X10^3/uL (0.0-0.1); EOSINOPHILS # (AUTO) 0.2 x10^3/uL (0.0-0.2); HEMATOCRIT 26.8 % (36.0-47.0); LYMPHOCYTES # (AUTO) 1.5 X10^3/uL (1.3-2.9); LYMPHOCYTES % (AUTO) 14.8 % (21.0-51.0); MEAN CORPUSCULAR HEMOGLOBIN 33.2 pg (27.0-34.0); MEAN CORPUSCULAR HGB CONC 33.8 g/dL (33.0-35.0); MEAN PLATELET VOLUME 9.7 fL (7.4-11.0); MONOCYTES # (AUTO) 1.3 x10^3/uL (0.3-0.8); MONOCYTES % (AUTO) 12.1 % (0.0-13.0); NEUTROPHILS # (AUTO) 7.3 x10^3/uL (2.2-4.8); NEUTROPHILS % (AUTO) 70.1 % (42.0-75.0); RED BLOOD COUNT 2.73 X10^6/uL (3.5-5.4); RED CELL DISTRIBUTION WIDTH 17.9 % (11.6-16.5); WHITE BLOOD COUNT 10.5 X10^3/uL (3.6-10.0)
[2021-10-24 07:25] LABS: BLOOD UREA NITROGEN 23 mg/dL (7-18); CALCIUM 8.1 mg/dL (8.5-10.1); CARBON DIOXIDE 21.8 mmol/L (21-32); CHLORIDE 106 mmol/L (98-107); COR NA(FOR HYPERGLY) 141 mmol/L (136-145); CREATININE 0.81 mg/dL (0.55-1.02); SODIUM 141 mmol/L (136-145); eGFR NON BLACK RACES > 60 (>60)
[2021-10-24 07:48] LABS: PLATELET MORPHOLOGY COMMENT NORMAL (NORMAL)
[2021-10-24 07:50] LABS: BURR CELLS PRESENT; HELMET CELLS PRESENT; POIKILOCYTOSIS 1+; SCHISTOCYTES PRESENT
[2021-10-24 07:51] LABS: ALANINE AMINOTRANSFERASE 167 Units/L (12-78); ALBUMIN 2.3 g/dL (3.4-5.0); ALKALINE PHOSPHATASE 221 Units/L (46-116); ANISOCYTOSIS SLIGHT; ASPARTATE AMINO TRANSFERASE 91 Units/L (15-37); COR CA(FOR HYPOALB) 9.5 mg/dL (8.5-10.1); MAGNESIUM 2.4 mg/dL (1.7-2.9); TOTAL PROTEIN 5.1 g/dL (6.4-8.2)
[2021-10-24] MEDS: BROVANA IN SCH ×2 (09:44→20:00)
[2021-10-24] MEDS: PULMICORT NEB TX 0.5 MG NEB SCH ×2 (09:44→20:00)
[2021-10-24] MEDS: COREG TAB 25 MG PO SCH ×2 (10:50→21:35)
[2021-10-24] MEDS: LOVENOX INJ 40 MG SYR SC SCH ×2 (10:51→21:39)
[2021-10-24] MEDS: LACRI-LUBE S.O.P. AFFEYE SCH ×2 (10:51→21:38)
[2021-10-24] MEDS: VIBRAMYCIN 100 MG in D5W 250 ML IV 250 ML IV SCH ×2 (10:51→21:41)
[2021-10-24] MEDS: ALTACE 5 MG CAP PO SCH (10:52)
[2021-10-24] MEDS: NITRODUR PATCH 0.4 MG/HR TD SCH (10:52)
[2021-10-24] MEDS: PROTONIX TAB 40 MG PO SCH (10:53)
[2021-10-24] MEDS: ROBITUSSIN DM PO PRN (18:12)
[2021-10-25] MEDS: ZOFRAN INJ 4 MG VIAL IVP PRN (04:55)
[2021-10-25 05:13] LABS: BASOPHILS % (AUTO) 0.4 % (0.2-1.0); EOSINOPHILS # (AUTO) 0.3 x10^3/uL (0.0-0.2); HEMATOCRIT 28.2 % (36.0-47.0); HEMOGLOBIN 9.5 g/dL (12.0-16.0); LYMPHOCYTES # (AUTO) 1.6 X10^3/uL (1.3-2.9); LYMPHOCYTES % (AUTO) 15.7 % (21.0-51.0); MEAN CORPUSCULAR HEMOGLOBIN 32.9 pg (27.0-34.0); MEAN CORPUSCULAR HGB CONC 33.5 g/dL (33.0-35.0); MEAN CORPUSCULAR VOLUME 98.2 fL (80.0-100.0); MONOCYTES # (AUTO) 1.5 x10^3/uL (0.3-0.8); MONOCYTES % (AUTO) 14.9 % (0.0-13.0); NEUTROPHILS # (AUTO) 6.7 x10^3/uL (2.2-4.8); RED BLOOD COUNT 2.88 X10^6/uL (3.5-5.4); RED CELL DISTRIBUTION WIDTH 17.6 % (11.6-16.5); WHITE BLOOD COUNT 10.2 X10^3/uL (3.6-10.0)
[2021-10-25 05:20] LABS: BLOOD UREA NITROGEN 15 mg/dL (7-18); CALCIUM 8.5 mg/dL (8.5-10.1); CARBON DIOXIDE 25.1 mmol/L (21-32); CHLORIDE 109 mmol/L (98-107); COR NA(FOR HYPERGLY) 142 mmol/L (136-145); CREATININE 0.73 mg/dL (0.55-1.02); SODIUM 141 mmol/L (136-145); eGFR NON BLACK RACES > 60 (>60)
[2021-10-25 05:33] LABS: ALANINE AMINOTRANSFERASE 128 Units/L (12-78); ALBUMIN 2.3 g/dL (3.4-5.0); ALKALINE PHOSPHATASE 236 Units/L (46-116); ASPARTATE AMINO TRANSFERASE 70 Units/L (15-37); COR CA(FOR HYPOALB) 9.9 mg/dL (8.5-10.1); TOTAL PROTEIN 5.7 g/dL (6.4-8.2)
[2021-10-25] MEDS: NS 1/2 + KCL 20 MEQ/L 1,000 ML IV SCH ×2 (05:59→13:37)
[2021-10-25] MEDS: PULMICORT NEB TX 0.5 MG NEB SCH (08:14)
[2021-10-25] MEDS: BROVANA IN SCH (08:14)
[2021-10-25] MEDS: ROBITUSSIN DM PO PRN (08:30)
[2021-10-25] MEDS: NITRODUR PATCH 0.4 MG/HR TD SCH (08:34)
[2021-10-25] MEDS: LACRI-LUBE S.O.P. AFFEYE SCH (08:34)
[2021-10-25] MEDS: ALTACE 5 MG CAP PO SCH (08:34)
[2021-10-25] MEDS: VIBRAMYCIN 100 MG in D5W 250 ML IV 250 ML IV SCH (08:36)
[2021-10-25] MEDS: PROTONIX TAB 40 MG PO SCH (08:36)
[2021-10-25] MEDS: MORPHINE SULFATE INJ 2 MG INJ IVP PRN (10:11)
[2021-10-25 13:36] VITALS: BP 136/80
[2021-10-25] MEDS: COREG TAB 25 MG PO SCH (13:37)
[2021-10-25] MEDS: LOVENOX INJ 40 MG SYR SC SCH (13:38)
--- NOTE | 2021-11-18 10:35 | PCM.PROG ---
Progress Note Progress Note for Day of Date of Exam: 10/24/21 Subjective Subjective: The patient still wants to go home this morning but becomes hypoxic on 2L NC with walking. Her O2 sats drop to the low 80's. We will need to keep her until her O2 sats are staying at least 88% or higher. Will re-evaluate the patient in the morning to see if her O2 sat will remain high enough to be discharged home. Past Medical Family Social History Past Med/Fam/Surg Hx: No changes since H&P Allergies: Allergies moxifloxacin [From Avelox] Allergy (Verified 10/12/20 15:14) penicillin G Allergy (Verified 10/12/20 15:14) acetaminophen [From Percocet] Adverse Reaction (Verified 10/12/20 15:14) NAUSEA oxycodone [From Percocet] Adverse Reaction (Verified 10/12/20 15:14) NAUSEA Review of Systems ROS: No change since H&P Vital Signs and I&O's Vital Signs: Temperature 97.6 F Pulse Rate [Right Brachial] 57 Pulse Rate 58 Respiratory Rate 22 Blood Pressure [Right Arm] 136/80 Blood Pressure 153/95 O2 Sat by Pulse Oximetry 98 Physical Exam Oriented: Normal Eyes: Normal Ear: Normal Throat: Normal Respiratory: Generalized and Diminished Cardiovascular: Normal : Normal Auscultation: Bowel Sounds: Normal Tenderness: Normal Skin: Normal Musculoskeletal: Normal Psychiatric: Normal Mood Description: Calm Affect: Normal Speech Pattern: Clear and Appropriate Laboratory and Diagnostics Result Diagrams: 10/25/21 04:50 10/25/21 04:50 Labs: Laboratory WBC 10.2 X10^3/uL (3.6-10.0) H 10/25/21 04:50 RBC 2.88 X10^6/uL (3.5-5.4) L 10/25/21 04:50 Hgb 9.5 g/dL (12.0-16.0) L 10/25/21 04:50 Hct 28.2 % (36.0-47.0) L 10/25/21 04:50 MCV 98.2 fL (80.0-100.0) 10/25/21 04:50 MCH 32.9 pg (27.0-34.0) 10/25/21 04:50 MCHC 33.5 g/dL (33.0-35.0) 10/25/21 04:50 RDW 17.6 % (11.6-16.5) H 10/25/21 04:50 Plt Count 288 X10^3/uL (150.0-450.0) 10/25/21 04:50 Plt Count Comment Adequate (ADEQUATE) 10/24/21 06:50 MPV 9.0 fL (7.4-11.0) 10/25/21 04:50 Neut % (Auto) 66.0 % (42.0-75.0) 10/25/21 04:50 Lymph % (Auto) 15.7 % (21.0-51.0) L 10/25/21 04:50 [place] % (Auto) 14.9 % (0.0-13.0) H 10/25/21 04:50 Eos % (Auto) 3.0 % (0.9-2.9) H 10/25/21 04:50 Baso % (Auto) 0.4 % (0.2-1.0) 10/25/21 04:50 Neut # (Auto) 6.7 x10^3/uL (2.2-4.8) H 10/25/21 04:50 Lymph # (Auto) 1.6 X10^3/uL (1.3-2.9) 10/25/21 04:50 [place] # (Auto) 1.5 x10^3/uL (0.3-0.8) H 10/25/21 04:50 Eos # (Auto) 0.3 x10^3/uL (0.0-0.2) H 10/25/21 04:50 Baso # (Auto) 0.0 X10^3/uL (0.0-0.1) 10/25/21 04:50 Absolute Nucleated RBC 0.5 /100WBC 10/25/21 04:50 Plt Morphology Comment Normal (NORMAL) 10/24/21 06:50 RBC Morphology Abnormal (NORMAL) A 10/24/21 06:50 Poikilocytosis 1+ A 10/24/21 06:50 Anisocytosis Slight A 10/24/21 06:50 Helmet Cells Present 10/24/21 06:50 Jennifer Cells Present 10/24/21 06:50 Schistocytes Present 10/24/21 06:50 PT 12.6 SECONDS (11.8-14.3) 10/19/21 20:15 INR Target Range - 10/19/21 20:15 INR 0.99 (0.8-1.3) 10/19/21 20:15 APTT 26.4 SECONDS (22.9-36.5) 10/19/21 20:15 PTT Comment - 10/19/21 20:15 Fibrinogen 470 mg/dL (239-489) 10/19/21 20:15 D-Dimer 8.40 ug/ml (0.0-0.57) H* 10/20/21 11:28 Sample Site Lb 10/21/21 04:50 ABG pH 7.450 (7.35-7.45) 10/21/21 04:50 ABG pCO2 35.0 mmHg (35.0-45.0) 10/21/21 04:50 ABG pO2 92.0 mmHg (80.0-100.0) 10/21/21 04:50 ABG HCO3 24.3 mmol/L (22-26) 10/21/21 04:50 ABG O2 Saturation 97.0 % (90-100) 10/21/21 04:50 ABG Base Excess 0.6 mmol/L (-2.0-2.0) 10/21/21 04:50 Rufus Test Pos 10/21/21 04:50 A-a Gradient 78.0 mmHg 10/21/21 04:50 FiO2 30.0 10/21/21 04:50 Blood Gas Comments 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 10/21/21 04:50 Sodium 141 mmol/L (136-145) 10/25/21 04:50 Corrected Sodium 142 mmol/L (136-145) 10/25/21 04:50 Potassium 4.4 mmol/L (3.5-5.1) 10/25/21 04:50 Chloride 109 mmol/L (98-107) H 10/25/21 04:50 Carbon Dioxide 25.1 mmol/L (21-32) 10/25/21 04:50 BUN 15 mg/dL (7-18) 10/25/21 04:50 Creatinine 0.73 mg/dL (0.55-1.02) 10/25/21 04:50 Est GFR (MDRD) Af Amer > 60 (>60) 10/25/21 04:50 Est GFR (MDRD) Non-Af > 60 (>60) 10/25/21 04:50 Glucose 134 mg/dL (65-99) H 10/25/21 04:50 Calcium 8.5 mg/dL (8.5-10.1) 10/25/21 04:50 Corrected Calcium 9.9 mg/dL (8.5-10.1) 10/25/21 04:50 Magnesium 2.4 mg/dL (1.7-2.9) 10/24/21 06:50 Total Bilirubin 0.80 mg/dL (0.2-1.0) 10/25/21 04:50 AST 70 Units/L (15-37) H 10/25/21 04:50 ALT 128 Units/L (12-78) H 10/25/21 04:50 Alkaline Phosphatase 236 Units/L (46-116) H 10/25/21 04:50 Creatine Kinase 203 Units/L (26-192) H 10/20/21 19:06 CK-MB (CK-2) 2.2 ng/mL (0-4.0) 10/20/21 19:06 CK/CKMB % Calc 1.1 % (<4) 10/20/21 19:06 Troponin I High Sens 227.5 ng/L (4.0-60.0) H* 10/20/21 19:06 Total Protein 5.7 g/dL (6.4-8.2) L 10/25/21 04:50 Albumin 2.3 g/dL (3.4-5.0) L 10/25/21 04:50 Globulin 3.4 g/dL (2.5-4.5) 10/25/21 04:50 Albumin/Globulin Ratio 0.7 Ratio (1.1-2.1) L 10/25/21 04:50 Specimen Type Catherized urine 10/20/21 03:15 Urine Color [place] (YELLOW) 10/20/21 03:15 Urine Appearance Clear (CLEAR) 10/20/21 03:15 Urine pH 6.0 (5.0 - 8.0) 10/20/21 03:15 Ur Specific [place] 1.025 (1.000-1.030) 10/20/21 03:15 Urine Protein 4+ (NEGATIVE) 10/20/21 03:15 Urine Glucose (UA) 1+ (NEGATIVE) 10/20/21 03:15 Urine Ketones Negative (NEGATIVE) 10/20/21 03:15 Urine Occult Blood 5+ (NEGATIVE) 10/20/21 03:15 Urine Nitrite Negative (NEGATIVE) 10/20/21 03:15 Urine Bilirubin Negative (NEGATIVE) 10/20/21 03:15 Urine Urobilinogen 1+ (NORMAL) 10/20/21 03:15 Ur Leukocyte Esterase Negative (NEGATIVE) 10/20/21 03:15 Urine RBC 5-10 /HPF (0-3) A 10/20/21 03:15 Urine WBC 0-2 /HPF (0-5) 10/20/21 03:15 Ur Squamous Epith Cells Rare /HPF (NEGATIVE) 10/20/21 03:15 Urine Bacteria Trace /HPF (NEGATIVE) 10/20/21 03:15 Hyaline Casts Numerous /LPF (NEGATIVE) 10/20/21 03:15 Urine Mucus Few /HPF (NEGATIVE) 10/20/21 03:15 Ur Culture Indicated? No/not indicated 10/20/21 03:15 SARS CoV-2 RNA Rapid GANESH Negative (NEGATIVE) 10/19/21 22:18 Plan (1) Hypoxia: Status: Acute (2) Anxiety: Status: Acute (3) Respiratory failure: Status: Acute Qualifiers: Chronicity: acute Respiratory failure complication: hypoxia Qualified Code(s): J96.01 - Acute respiratory failure with hypoxia (4) Altered mental status: Status: Acute Qualifiers: Altered mental status type: transient alteration of awareness Qualified Code(s): R40.4 - Transient alteration of awareness (5) GERD (gastroesophageal reflux disease): Status: Acute
--- NOTE | 2021-11-18 10:53 | PCM.DCPLAN ---
DISCHARGE SUMMARY Admission Date Date of Admission: 10/20/21 Discharge Date Discharge Date: 10/25/21 Admission Diagnoses (1) Hypoxia: Status: Acute (2) Anxiety: Status: Acute (3) Respiratory failure: Status: Acute (4) Altered mental status: Status: Acute (5) GERD (gastroesophageal reflux disease): Status: Acute Discharge Diagnoses Discharge Diagnosis: 1. Hypoxia- much improved 2. Respiratory Failure- Resolved 3. Anxiety- Stable 4. AMS- Resolved 5. GERD- Stable 6. Hypokalemia- Resolved 7. HTN- Stable 8. Subendocardial PA 9. Anemia- Stable 10. Elevated LFT's Discharge Medications Discharge Medications: Home Medication List diphenoxylate-atropine 2 tab PO QID PRN 10/20/21 [History] dronabinol 5 mg PO BID 10/20/21 [History] levofloxacin 500 mg PO DAILY 10/20/21 [History] lidocaine-prilocaine 1 applic TOPICAL PRETR 10/20/21 [History] mirtazapine 15 mg PO QHS PRN 10/20/21 [History] ondansetron HCl 8 mg PO 12 PRN 10/20/21 [History] prochlorperazine maleate 10 mg PO .Q6-8H PRN 10/20/21 [History] carvedilol 25 mg PO BID #60 tab 10/22/21 [Rx] clopidogrel [Plavix] 75 mg PO ONCE #30 tab 10/22/21 [Rx] nitroglycerin 1 patch TRANSDERMAL Q24H #30 ea 10/22/21 [Rx] nitroglycerin [Nitrostat] 0.4 mg SUBLINGUAL Q5M PRN #25 tab 10/22/21 [Rx] ramipril [Altace] 5 mg PO BID #30 cap 10/22/21 [Rx] rosuvastatin [Crestor] 10 mg PO ONCE #30 tab 10/22/21 [Rx] Prescriptions: carvedilol JUAN ANGEL clopidogrel [Plavix] JUAN ANGEL nitroglycerin [Nitrostat] JUAN ANGEL nitroglycerin JUAN ANGEL ramipril [Altace] JUAN ANGEL rosuvastatin [Crestor] JUAN ANGEL Hospital Course Vital Signs: Temperature 97.6 F Pulse Rate [Right Brachial] 57 Pulse Rate 58 Respiratory Rate 22 Blood Pressure [Right Arm] 136/80 Blood Pressure 153/95 O2 Sat by Pulse Oximetry 98 Latest Lab Results: Laboratory Last Values WBC 10.2 X10^3/uL (3.6-10.0) H 10/25/21 04:50 RBC 2.88 X10^6/uL (3.5-5.4) L 10/25/21 04:50 Hgb 9.5 g/dL (12.0-16.0) L 10/25/21 04:50 Hct 28.2 % (36.0-47.0) L 10/25/21 04:50 MCV 98.2 fL (80.0-100.0) 10/25/21 04:50 MCH 32.9 pg (27.0-34.0) 10/25/21 04:50 MCHC 33.5 g/dL (33.0-35.0) 10/25/21 04:50 RDW 17.6 % (11.6-16.5) H 10/25/21 04:50 Plt Count 288 X10^3/uL (150.0-450.0) 10/25/21 04:50 Plt Count Comment Adequate (ADEQUATE) 10/24/21 06:50 MPV 9.0 fL (7.4-11.0) 10/25/21 04:50 Neut % (Auto) 66.0 % (42.0-75.0) 10/25/21 04:50 Lymph % (Auto) 15.7 % (21.0-51.0) L 10/25/21 04:50 [place] % (Auto) 14.9 % (0.0-13.0) H 10/25/21 04:50 Eos % (Auto) 3.0 % (0.9-2.9) H 10/25/21 04:50 Baso % (Auto) 0.4 % (0.2-1.0) 10/25/21 04:50 Neut # (Auto) 6.7 x10^3/uL (2.2-4.8) H 10/25/21 04:50 Lymph # (Auto) 1.6 X10^3/uL (1.3-2.9) 10/25/21 04:50 [place] # (Auto) 1.5 x10^3/uL (0.3-0.8) H 10/25/21 04:50 Eos # (Auto) 0.3 x10^3/uL (0.0-0.2) H 10/25/21 04:50 Baso # (Auto) 0.0 X10^3/uL (0.0-0.1) 10/25/21 04:50 Absolute Nucleated RBC 0.5 /100WBC 10/25/21 04:50 Plt Morphology Comment Normal (NORMAL) 10/24/21 06:50 RBC Morphology Abnormal (NORMAL) A 10/24/21 06:50 Poikilocytosis 1+ A 10/24/21 06:50 Anisocytosis Slight A 10/24/21 06:50 Helmet Cells Present 10/24/21 06:50 Jennifer Cells Present 10/24/21 06:50 Schistocytes Present 10/24/21 06:50 PT 12.6 SECONDS (11.8-14.3) 10/19/21 20:15 INR Target Range - 10/19/21 20:15 INR 0.99 (0.8-1.3) 10/19/21 20:15 APTT 26.4 SECONDS (22.9-36.5) 10/19/21 20:15 PTT Comment - 10/19/21 20:15 Fibrinogen 470 mg/dL (239-489) 10/19/21 20:15 D-Dimer 8.40 ug/ml (0.0-0.57) H* 10/20/21 11:28 Sample Site Lb 10/21/21 04:50 ABG pH 7.450 (7.35-7.45) 10/21/21 04:50 ABG pCO2 35.0 mmHg (35.0-45.0) 10/21/21 04:50 ABG pO2 92.0 mmHg (80.0-100.0) 10/21/21 04:50 ABG HCO3 24.3 mmol/L (22-26) 10/21/21 04:50 ABG O2 Saturation 97.0 % (90-100) 10/21/21 04:50 ABG Base Excess 0.6 mmol/L (-2.0-2.0) 10/21/21 04:50 Rufus Test Pos 10/21/21 04:50 A-a Gradient 78.0 mmHg 10/21/21 04:50 FiO2 30.0 10/21/21 04:50 Blood Gas Comments 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/21 04:50 Sodium 141 mmol/L (136-145) 10/25/21 04:50 Corrected Sodium 142 mmol/L (136-145) 10/25/21 04:50 Potassium 4.4 mmol/L (3.5-5.1) 10/25/21 04:50 Chloride 109 mmol/L (98-107) H 10/25/21 04:50 Carbon Dioxide 25.1 mmol/L (21-32) 10/25/21 04:50 BUN 15 mg/dL (7-18) 10/25/21 04:50 Creatinine 0.73 mg/dL (0.55-1.02) 10/25/21 04:50 Est GFR (MDRD) Af Amer > 60 (>60) 10/25/21 04:50 Est GFR (MDRD) Non-Af > 60 (>60) 10/25/21 04:50 Glucose 134 mg/dL (65-99) H 10/25/21 04:50 Calcium 8.5 mg/dL (8.5-10.1) 10/25/21 04:50 Corrected Calcium 9.9 mg/dL (8.5-10.1) 10/25/21 04:50 Magnesium 2.4 mg/dL (1.7-2.9) 10/24/21 06:50 Total Bilirubin 0.80 mg/dL (0.2-1.0) 10/25/21 04:50 AST 70 Units/L (15-37) H 10/25/21 04:50 ALT 128 Units/L (12-78) H 10/25/21 04:50 Alkaline Phosphatase 236 Units/L (46-116) H 10/25/21 04:50 Creatine Kinase 203 Units/L (26-192) H 10/20/21 19:06 CK-MB (CK-2) 2.2 ng/mL (0-4.0) 10/20/21 19:06 CK/CKMB % Calc 1.1 % (<4) 10/20/21 19:06 Troponin I High Sens 227.5 ng/L (4.0-60.0) H* 10/20/21 19:06 Total Protein 5.7 g/dL (6.4-8.2) L 10/25/21 04:50 Albumin 2.3 g/dL (3.4-5.0) L 10/25/21 04:50 Globulin 3.4 g/dL (2.5-4.5) 10/25/21 04:50 Albumin/Globulin Ratio 0.7 Ratio (1.1-2.1) L 10/25/21 04:50 Specimen Type Catherized urine 10/20/21 03:15 Urine Color [place] (YELLOW) 10/20/21 03:15 Urine Appearance Clear (CLEAR) 10/20/21 03:15 Urine pH 6.0 (5.0 - 8.0) 10/20/21 03:15 Ur Specific [place] 1.025 (1.000-1.030) 10/20/21 03:15 Urine Protein 4+ (NEGATIVE) 10/20/21 03:15 Urine Glucose (UA) 1+ (NEGATIVE) 10/20/21 03:15 Urine Ketones Negative (NEGATIVE) 10/20/21 03:15 Urine Occult Blood 5+ (NEGATIVE) 10/20/21 03:15 Urine Nitrite Negative (NEGATIVE) 10/20/21 03:15 Urine Bilirubin Negative (NEGATIVE) 10/20/21 03:15 Urine Urobilinogen 1+ (NORMAL) 10/20/21 03:15 Ur Leukocyte Esterase Negative (NEGATIVE) 10/20/21 03:15 Urine RBC 5-10 /HPF (0-3) A 10/20/21 03:15 Urine WBC 0-2 /HPF (0-5) 10/20/21 03:15 Ur Squamous Epith Cells Rare /HPF (NEGATIVE) 10/20/21 03:15 Urine Bacteria Trace /HPF (NEGATIVE) 10/20/21 03:15 Hyaline Casts Numerous /LPF (NEGATIVE) 10/20/21 03:15 Urine Mucus Few /HPF (NEGATIVE) 10/20/21 03:15 Ur Culture Indicated? No/not indicated 10/20/21 03:15 SARS CoV-2 RNA Rapid GANESH Negative (NEGATIVE) 10/19/21 22:18 Hospital Course: After admission, the patiet was put on BiPap but she vomted and was placed on the ventilator for around 36 hours. Cardiology was consulted regarding her elevated troponins. Dr Carter started her on Coreg. After intubation she reported no chest pain and was comfortable on 2L NC. On the morning of 22 Oct 2021 she was to be discharged home but later that day a family member did not want her to be sent home. The discharge was cancelled and on the next morning she wanted to go home. Because of her low O2 sats with walking that day I elected to keep her for another day or two. We continued her on IV steroids and Nebs treatments. On the morning of the 25 Oct 2021 she was keeping her O2 sats up > 88% of air on 4L even with walking. She was discharged home in stable condition. Instructions Instructions: Fall Prevention in the Home, Adult, [id number] Hypokalemia Home Oxygen Use, Adult Hypoxia Chronic Obstructive Pulmonary Disease, [id number] Hypertension, Adult, [id number] Acute Respiratory Failure, Adult Forms: Precautions for COVID19 [facility] Patient Portal Social Distancing
== END 2021-10-25 17:00 | disposition home health service (06) | DRG 208 ==
LOC: ER 19:29 → MED/SURG 10-20 08:12
PROVIDERS: ADMIT Obstetrics & Gynecology Obstetrics; ATTEND Family Medicine
DX: R26.2 Difficulty in walking, not elsewhere classified; J44.9 Chronic obstructive pulmonary disease, unspecified; R41.82 Altered mental status, unspecified; I21.4 Non-ST elevation (NSTEMI) myocardial infarction; C53.9 Malignant neoplasm of cervix uteri, unspecified; Z78.1 Physical restraint status; C79.89 Secondary malignant neoplasm of other specified sites; R47.01 Aphasia; I25.10 Atherosclerotic heart disease of native coronary artery without angina pectoris; I27.20 Pulmonary hypertension, unspecified; R79.89 Other specified abnormal findings of blood chemistry; I25.5 Ischemic cardiomyopathy; E87.6 Hypokalemia; Z20.822 Contact with and (suspected) exposure to COVID-19; I10 Essential (primary) hypertension; J96.01 Acute respiratory failure with hypoxia; K21.9 Gastro-esophageal reflux disease without esophagitis